=== PATIENT | female | born 1990 | race Two or more races ===

== ENCOUNTER 2018-02-18 20:44 | Inpatient (IN) | payer BC, MEDICAID ==
[~2018-02-18] VITALS: Ht 157.5 cm; Wt 54.4 kg
--- NOTE | 2018-02-18 20:59 | Emergency Room Report ---
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 She was taking care of a patient that had nausea vomiting diarrhea. She's been unable to keep anything down for 1 day. She's also had watery stools that have change in smell. She's not passed any blood in not vomiting any blood. She also has myalgias and arthralgias. There is a slight amount of epigastric pain. She's not been able keep down any medication. She does not have a Zofran. Pain in body 7/10, abdomen 4/10. Some improvement with moving her bowels. She denies any dysuria. LNMP normal. She feels dizzy when she stands up. Slight headache. She denies any medical problems Proband child with WBCs in stool. Ill for 3 days. Apparently child's stools sent for analysis. 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 Last Menstrual Period: 2 days ago Reviewed Nursing Documentation: PMH: Agreed; PSxH: Agreed (Kye Redd MD) Nursing Documentation-PMH Past Medical History: No Stated History (Kye Redd MD) Review of Systems All Other Systems: negative except mentioned in HPI (Kye Redd MD) Physical Exam Vital Signs Date Time Temp Pulse Resp B/P (MAP) Pulse Ox O2 Delivery O2 Flow Rate FiO2 02/18/18 20:45 102.2 92 18 116/73 99 Room Air Sp02 EP Interpretation: reviewed, normal General Appearance: well appearing, no apparent distress, GCS 15 Head: normocephalic Eyes: bilateral eye normal inspection, bilateral eye PERRL ENT: moist mucus membranes Neck: supple Respiratory: lungs clear, normal breath sounds Cardiovascular #1: tachycardia Cardiovascular #2: 2+ radial (R) Gastrointestinal: normal inspection, normal bowel sounds, non tender, soft, non -distended, no guarding, no rebound Genitourinary: no CVA tenderness Musculoskeletal: back normal, normal range of motion Neurologic: alert, oriented x3, grossly normal Psychiatric: mood/affect normal Skin: normal inspection, warm/dry (Kye Redd MD) Medical Decision Making Diagnostic Impression: Primary Impression: Colitis ER Course Patient presents with nausea vomiting diarrhea and fever. She is tachycardic and symptomatic. She'll be treated with IV hydration, Zofran and Toradol and a small dose of morphine. In addition to that we will be sending labs and urinalysis. As child with WBC in stool, concern for possible infectious ( invasive) gastroenteritis. Will send stool for evaluation if produced. Consideration for treatment with antibiotics if elevated WBC. Some improved with 1st bolus and meds. Tolerating oral. Hypotensive. Temp better. Offered admission. She prefers outpatient observation. 3rd liter. Signed out to Dr. Nguyen. Laboratory Tests Test 02/18/18 20:45 02/18/18 21:00 Urine Color Yellow Urine Appearance Clear Urine pH 5 (4.5-8.0) Urine Specific [place] 1.020 (1.005-1.035) Urine Protein 2+ (NEGATIVE) H Urine Glucose (UA) Negative (NEGATIVE) Urine Ketones 4+ (NEGATIVE) H Urine Blood 2+ (NEGATIVE) H Urine Nitrite Negative (NEGATIVE) Urine Bilirubin Negative (NEGATIVE) Urine Urobilinogen Normal MG/DL (0.0-1.0) Urine Leukocyte Esterase 1+ (NEGATIVE) H Urine RBC 5-10 /HPF (0 - 2) H Urine WBC 2-4 /HPF (0 - 2) Urine Squamous Epithelial Cells Few /LPF (NONE/OCC) Urine Amorphous Sediment Few /LPF (NONE) H Urine Bacteria Few /HPF (NONE) Urine HCG, Qualitative Negative (NEGATIVE) White Blood Count 8.4 K/UL (4.8-10.8) Red Blood Count 5.43 M/UL (4.20-5.40) H Hemoglobin 15.7 G/DL (12.0-16.0) Hematocrit 46.9 % (37.0-47.0) Mean Corpuscular Volume 86 FL (80-99) Mean Corpuscular Hemoglobin 28.9 PG (27.0-31.0) Mean Corpuscular Hemoglobin Concent 33.5 G/DL (32.0-36.0) Red Cell Distribution Width 11.3 % (11.6-14.8) L Platelet Count 164 K/UL (150-450) Mean Platelet Volume 8.4 FL (6.5-10.1) Neutrophils (%) (Auto) % (45.0-75.0) Lymphocytes (%) (Auto) % (20.0-45.0) Monocytes (%) (Auto) % (1.0-10.0) Eosinophils (%) (Auto) % (0.0-3.0) Basophils (%) (Auto) % (0.0-2.0) Differential Total Cells Counted 100 Neutrophils % (Manual) 88 % (45-75) H Lymphocytes % (Manual) 5 % (20-45) L Monocytes % (Manual) 4 % (1-10) Eosinophils % (Manual) 0 % (0-3) Basophils % (Manual) 0 % (0-2) Band Neutrophils 3 % (0-8) Platelet Estimate Adequate Platelet Morphology Normal Red Blood Cell Morphology Normal Sodium Level 139 MMOL/L (136-145) Potassium Level 3.6 MMOL/L (3.5-5.1) Chloride Level 104 MMOL/L (98-107) Carbon Dioxide Level 22 MMOL/L (21-32) Anion Gap 13 mmol/L (5-15) Blood Urea Nitrogen 15 mg/dL (7-18) Creatinine 0.8 MG/DL (0.55-1.30) Estimate Glomerular Filtration Rate > 60 mL/min (>60) Glucose Level 110 MG/DL (74-106) H Calcium Level 9.0 MG/DL (8.5-10.1) Total Bilirubin 1.1 MG/DL (0.2-1.0) H Direct Bilirubin 0.2 MG/DL (0.0-0.3) Aspartate Amino Transferase (AST) 17 U/L (15-37) Alanine Aminotransferase (ALT) 30 U/L (12-78) Alkaline Phosphatase 49 U/L (46-116) Total Protein 8.1 G/DL (6.4-8.2) Albumin 4.0 G/DL (3.4-5.0) Globulin 4.1 g/dL Albumin/Globulin Ratio 1.0 (1.0-2.7) Lipase 118 U/L (73-393) (Kye Redd MD) ER Course Hospital Course 27 year-old female presents ED with abdominal pain, vomiting and diarrhea Clinical course Patient initially seen by Dr. Redd; please see her note for full history and physical Patient was pending reassessment after fourth liter of fluid. Patient remained hypotensive and tachycardic Patient received fourth liter of fluid. Repeat vitals show systolic blood pressure in the 90s with tachycardia. Patient feels weak and dizzy Discussed findings with patient. Patient continues to have pain. Will require admission for continued IV hydration and antibiotics Given Charmaine Gonzalez here. Lactate and cultures drawn Case discussed with Dr. Forte and he agreed to accept the patient to his service for further care and support I feel this is a highly complex case requiring extensive working including EKG/ Rhythm strip, Xray/CT/US, Blood/urine lab work, repeat exams while in ED, and administration of strong opiates/narcotics for pain control, admission to hospital or close patient follow up. Diagnosis - colitis Patient admitted to telemetry in serious condition Labs Test 02/18/18 20:45 02/18/18 21:00 Urine Color Yellow Urine Appearance Clear Urine pH 5 (4.5-8.0) Urine Specific [place] 1.020 (1.005-1.035) Urine Protein 2+ (NEGATIVE) Urine Glucose (UA) Negative (NEGATIVE) Urine Ketones 4+ (NEGATIVE) Urine Blood 2+ (NEGATIVE) Urine Nitrite Negative (NEGATIVE) Urine Bilirubin Negative (NEGATIVE) Urine Urobilinogen Normal MG/DL (0.0-1.0) Urine Leukocyte Esterase 1+ (NEGATIVE) Urine RBC 5-10 /HPF (0 - 2) Urine WBC 2-4 /HPF (0 - 2) Urine Squamous Epithelial Cells Few /LPF (NONE/OCC) Urine Amorphous Sediment Few /LPF (NONE) Urine Bacteria Few /HPF (NONE) Urine HCG, Qualitative Negative (NEGATIVE) White Blood Count 8.4 K/UL (4.8-10.8) Red Blood Count 5.43 M/UL (4.20-5.40) Hemoglobin 15.7 G/DL (12.0-16.0) Hematocrit 46.9 % (37.0-47.0) Mean Corpuscular Volume 86 FL (80-99) Mean Corpuscular Hemoglobin 28.9 PG (27.0-31.0) Mean Corpuscular Hemoglobin Concent 33.5 G/DL (32.0-36.0) Red Cell Distribution Width 11.3 % (11.6-14.8) Platelet Count 164 K/UL (150-450) Mean Platelet Volume 8.4 FL (6.5-10.1) Neutrophils (%) (Auto) % (45.0-75.0) Lymphocytes (%) (Auto) % (20.0-45.0) Monocytes (%) (Auto) % (1.0-10.0) Eosinophils (%) (Auto) % (0.0-3.0) Basophils (%) (Auto) % (0.0-2.0) Differential Total Cells Counted 100 Neutrophils % (Manual) 88 % (45-75) Lymphocytes % (Manual) 5 % (20-45) Monocytes % (Manual) 4 % (1-10) Eosinophils % (Manual) 0 % (0-3) Basophils % (Manual) 0 % (0-2) Band Neutrophils 3 % (0-8) Platelet Estimate Adequate Platelet Morphology Normal Red Blood Cell Morphology Normal Sodium Level 139 MMOL/L (136-145) Potassium Level 3.6 MMOL/L (3.5-5.1) Chloride Level 104 MMOL/L (98-107) Carbon Dioxide Level 22 MMOL/L (21-32) Anion Gap 13 mmol/L (5-15) Blood Urea Nitrogen 15 mg/dL (7-18) Creatinine 0.8 MG/DL (0.55-1.30) Estimat Glomerular Filtration Rate > 60 mL/min (>60) Glucose Level 110 MG/DL (74-106) Calcium Level 9.0 MG/DL (8.5-10.1) Total Bilirubin 1.1 MG/DL (0.2-1.0) Direct Bilirubin 0.2 MG/DL (0.0-0.3) Aspartate Amino Transf (AST/SGOT) 17 U/L (15-37) Alanine Aminotransferase (ALT/SGPT) 30 U/L (12-78) Alkaline Phosphatase 49 U/L (46-116) Total Protein 8.1 G/DL (6.4-8.2) Albumin 4.0 G/DL (3.4-5.0) Globulin 4.1 g/dL Albumin/Globulin Ratio 1.0 (1.0-2.7) Lipase 118 U/L (73-393) (Eamon Nguyen MD) Status: improved (Kye Redd MD) Status: improved (Eamon Nguyen MD) Disposition: ADMITTED INPATIENT Condition: Serious Scripts Acetaminophen (Tylenol) 325 Mg Tablet 650 MG ORAL Q6H PRN for Prn Pain/Headache/Temp > 101, #20 TAB 0 Refills Prov: Kye Redd MD 02/18/18 Ondansetron Odt* (ZOFRAN ODT*) 4 Mg Tab.rapdis 4 MG BC EVERY 8 HOURS, #6 TAB 1 Refill Prov: Kye Redd MD 02/18/18 Kye Redd MD Feb 18, 2018 20:59 Eamon Nguyen MD Feb 19, 2018 04:01
[2018-02-18] MEDS ORDERED: Morphine Sulfate 2mg/ml Inj IVP ONE (21:00)
[2018-02-18] MEDS ORDERED: Ketorolac 30mg Inj IV ONE (21:00)
[2018-02-18 21:17] VITALS: BP 116/73
[2018-02-18 21:26] LABS: APPEARANCE,URINE CLEAR; BILIRUBIN, URINE NEGATIVE (NEGATIVE); GLUCOSE, URINE (UA) NEGATIVE (NEGATIVE); KETONES,URINE 4+ (NEGATIVE); LEUKOCYTE ESTERASE ,URINE 1+ (NEGATIVE); NITRITE,URINE NEGATIVE (NEGATIVE); PH,URINE 5 (4.5-8.0); PROTEIN,URINE 2+ (NEGATIVE); UROBILINOGEN,URINE NORMAL MG/DL (0.0-1.0)
[2018-02-18 21:28] LABS: COLOR,URINE YELLOW
[2018-02-18 21:32] LABS: HEMATOCRIT 46.9 % (37.0-47.0); HEMOGLOBIN 15.7 G/DL (12.0-16.0); MEAN CORPUSCULAR VOLUME 86 FL (80-99); PLATELET COUNT 164 K/UL (150-450); RED BLOOD COUNT 5.43 M/UL (4.20-5.40); RED CELL DISTRIBUTION WIDTH 11.3 % (11.6-14.8); WHITE BLOOD COUNT 8.4 K/UL (4.8-10.8)
[2018-02-18 21:39] LABS: ANION GAP 13 mmol/L (5-15); BLOOD UREA NITROGEN 15 mg/dL (7-18); CARBON DIOXIDE 22 MMOL/L (21-32); CHLORIDE 104 MMOL/L (98-107); CREATININE 0.8 MG/DL (0.55-1.30); POTASSIUM 3.6 MMOL/L (3.5-5.1); SODIUM 139 MMOL/L (136-145)
[2018-02-18 21:48] LABS: ALANINE AMINOTRANSFERASE 30 U/L (12-78); ALKALINE PHOSPHATASE 49 U/L (46-116); ASPARTATE AMINO TRANSFERASE 17 U/L (15-37); BILIRUBIN,TOTAL 1.1 MG/DL (0.2-1.0)
[2018-02-18 21:50] LABS: BILIRUBIN,DIRECT 0.2 MG/DL (0.0-0.3)
[2018-02-18 23:08] VITALS: BP 87/43
[2018-02-18] MEDS ORDERED: ONDANSETRON ODT4 MG BC (23:28)
[2018-02-18] MEDS ORDERED: TYLENOL325 MG ORAL (23:28)
[2018-02-19] VITALS (8 sets, daily range): BP systolic 94–112; BP diastolic 51–69
[2018-02-19] MEDS ORDERED: Morphine Sulfate 4mg/ml Inj (IV/IM USE ONLY) IVP ONE ×2 (04:00)
[2018-02-19] MEDS ORDERED: Sodium Chloride 500ML 500 ML IVLG SCH (04:40)
[2018-02-19] MEDS ORDERED: Morphine Sulfate 4mg/ml Inj (IV/IM USE ONLY) IVP PRN ×2 (04:45→06:00)
[2018-02-19] MEDS ORDERED: Sodium Chloride 500ML 550 ML IV PRN (06:45)
[2018-02-19] MEDS ORDERED: D5NS 1,000 ML IV SCH (07:00)
[2018-02-19] MEDS: Enoxaparin 40mg Inj SUBQ SCH (09:00)
--- NOTE | 2018-02-19 10:47 | Pulmonology Progress Note ---
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 She's been unable to keep anything down for 1 day. She's also had watery stools that have change in smell. She's not passed any blood in not vomiting any blood. She also has myalgias and arthralgias. There is a slight amount of epigastric pain. She's not been able keep down any medication. She does not have a Zofran. Pain in body 7/10, abdomen 4/10. Some improvement with moving her bowels. She denies any dysuria. LNMP normal. She feels dizzy when she stands up. Slight headache. 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 Past Medical History: No Stated History Review of Systems All Other Systems: negative except mentioned in HPI Physical Exam Vital Signs Noted General Appearance: well appearing, no apparent distress, GCS 15 Head: normocephalic Eyes: bilateral eye normal inspection, bilateral eye PERRL ENT: moist mucus membranes Neck: supple Respiratory: lungs clear, normal breath sounds Cardiovascular #1: tachycardia Cardiovascular #2: 2+ radial (R) Gastrointestinal: normal inspection, normal bowel sounds, non tender, soft, non -distended, no guarding, no rebound Genitourinary: no CVA tenderness Musculoskeletal: back normal, normal range of motion Neurologic: alert, oriented x3, grossly normal Psychiatric: mood/affect normal Skin: normal inspection, warm/dry Impression Possible Infectious Diarrhea with fever. She is tachycardic and symptomatic. Plan: IV hydration, bolus PRN, Zofran and [place]. Labs and urinalysis. Tolerating oral fluids Antibiotics: Cipro and Flagyl IV PPX O2 PRN Laboratory Tests Test 02/18/18 20:45 02/18/18 21:00 Urine Color Yellow Urine Appearance Clear Urine pH 5 (4.5-8.0) Urine Specific [place] 1.020 (1.005-1.035) Urine Protein 2+ (NEGATIVE) H Urine Glucose (UA) Negative (NEGATIVE) Urine Ketones 4+ (NEGATIVE) H Urine Blood 2+ (NEGATIVE) H Urine Nitrite Negative (NEGATIVE) Urine Bilirubin Negative (NEGATIVE) Urine Urobilinogen Normal MG/DL (0.0-1.0) Urine Leukocyte Esterase 1+ (NEGATIVE) H Urine RBC 5-10 /HPF (0 - 2) H Urine WBC 2-4 /HPF (0 - 2) Urine Squamous Epithelial Cells Few /LPF (NONE/OCC) Urine Amorphous Sediment Few /LPF (NONE) H Urine Bacteria Few /HPF (NONE) Urine HCG, Qualitative Negative (NEGATIVE) White Blood Count 8.4 K/UL (4.8-10.8) Red Blood Count 5.43 M/UL (4.20-5.40) H Hemoglobin 15.7 G/DL (12.0-16.0) Hematocrit 46.9 % (37.0-47.0) Mean Corpuscular Volume 86 FL (80-99) Mean Corpuscular Hemoglobin 28.9 PG (27.0-31.0) Mean Corpuscular Hemoglobin Concent 33.5 G/DL (32.0-36.0) Red Cell Distribution Width 11.3 % (11.6-14.8) L Platelet Count 164 K/UL (150-450) Mean Platelet Volume 8.4 FL (6.5-10.1) Neutrophils (%) (Auto) % (45.0-75.0) Lymphocytes (%) (Auto) % (20.0-45.0) Monocytes (%) (Auto) % (1.0-10.0) Eosinophils (%) (Auto) % (0.0-3.0) Basophils (%) (Auto) % (0.0-2.0) Differential Total Cells Counted 100 Neutrophils % (Manual) 88 % (45-75) H Lymphocytes % (Manual) 5 % (20-45) L Monocytes % (Manual) 4 % (1-10) Eosinophils % (Manual) 0 % (0-3) Basophils % (Manual) 0 % (0-2) Band Neutrophils 3 % (0-8) Platelet Estimate Adequate Platelet Morphology Normal Red Blood Cell Morphology Normal Sodium Level 139 MMOL/L (136-145) Potassium Level 3.6 MMOL/L (3.5-5.1) Chloride Level 104 MMOL/L (98-107) Carbon Dioxide Level 22 MMOL/L (21-32) Anion Gap 13 mmol/L (5-15) Blood Urea Nitrogen 15 mg/dL (7-18) Creatinine 0.8 MG/DL (0.55-1.30) Estimate Glomerular Filtration Rate > 60 mL/min (>60) Glucose Level 110 MG/DL (74-106) H Calcium Level 9.0 MG/DL (8.5-10.1) Total Bilirubin 1.1 MG/DL (0.2-1.0) H Direct Bilirubin 0.2 MG/DL (0.0-0.3) Aspartate Amino Transferase (AST) 17 U/L (15-37) Alanine Aminotransferase (ALT) 30 U/L (12-78) Alkaline Phosphatase 49 U/L (46-116) Total Protein 8.1 G/DL (6.4-8.2) Albumin 4.0 G/DL (3.4-5.0) Globulin 4.1 g/dL Albumin/Globulin Ratio 1.0 (1.0-2.7) Lipase 118 U/L (73-393) Labs Test 02/18/18 20:45 02/18/18 21:00 Urine Color Yellow Urine Appearance Clear Urine pH 5 (4.5-8.0) Urine Specific [place] 1.020 (1.005-1.035) Urine Protein 2+ (NEGATIVE) Urine Glucose (UA) Negative (NEGATIVE) Urine Ketones 4+ (NEGATIVE) Urine Blood 2+ (NEGATIVE) Urine Nitrite Negative (NEGATIVE) Urine Bilirubin Negative (NEGATIVE) Urine Urobilinogen Normal MG/DL (0.0-1.0) Urine Leukocyte Esterase 1+ (NEGATIVE) Urine RBC 5-10 /HPF (0 - 2) Urine WBC 2-4 /HPF (0 - 2) Urine Squamous Epithelial Cells Few /LPF (NONE/OCC) Urine Amorphous Sediment Few /LPF (NONE) Urine Bacteria Few /HPF (NONE) Urine HCG, Qualitative Negative (NEGATIVE) White Blood Count 8.4 K/UL (4.8-10.8) Red Blood Count 5.43 M/UL (4.20-5.40) Hemoglobin 15.7 G/DL (12.0-16.0) Hematocrit 46.9 % (37.0-47.0) Mean Corpuscular Volume 86 FL (80-99) Mean Corpuscular Hemoglobin 28.9 PG (27.0-31.0) Mean Corpuscular Hemoglobin Concent 33.5 G/DL (32.0-36.0) Red Cell Distribution Width 11.3 % (11.6-14.8) Platelet Count 164 K/UL (150-450) Mean Platelet Volume 8.4 FL (6.5-10.1) Neutrophils (%) (Auto) % (45.0-75.0) Lymphocytes (%) (Auto) % (20.0-45.0) Monocytes (%) (Auto) % (1.0-10.0) Eosinophils (%) (Auto) % (0.0-3.0) Basophils (%) (Auto) % (0.0-2.0) Differential Total Cells Counted 100 Neutrophils % (Manual) 88 % (45-75) Lymphocytes % (Manual) 5 % (20-45) Monocytes % (Manual) 4 % (1-10) Eosinophils % (Manual) 0 % (0-3) Basophils % (Manual) 0 % (0-2) Band Neutrophils 3 % (0-8) Platelet Estimate Adequate Platelet Morphology Normal Red Blood Cell Morphology Normal Sodium Level 139 MMOL/L (136-145) Potassium Level 3.6 MMOL/L (3.5-5.1) Chloride Level 104 MMOL/L (98-107) Carbon Dioxide Level 22 MMOL/L (21-32) Anion Gap 13 mmol/L (5-15) Blood Urea Nitrogen 15 mg/dL (7-18) Creatinine 0.8 MG/DL (0.55-1.30) Estimat Glomerular Filtration Rate > 60 mL/min (>60) Glucose Level 110 MG/DL (74-106) Calcium Level 9.0 MG/DL (8.5-10.1) Total Bilirubin 1.1 MG/DL (0.2-1.0) Direct Bilirubin 0.2 MG/DL (0.0-0.3) Aspartate Amino Transf (AST/SGOT) 17 U/L (15-37) Alanine Aminotransferase (ALT/SGPT) 30 U/L (12-78) Alkaline Phosphatase 49 U/L (46-116) Total Protein 8.1 G/DL (6.4-8.2) Albumin 4.0 G/DL (3.4-5.0) Globulin 4.1 g/dL Albumin/Globulin Ratio 1.0 (1.0-2.7) Lipase 118 U/L (73-393) Subjective ROS Limited/Unobtainable: No Gastrointestinal/Abdominal: Reports: diarrhea Allergies: Uncoded Allergies: MINOCYLES MX (Allergy, Unknown, 02/18/18) Objective Last 24 Hour Vital Signs Date Time Temp Pulse Resp B/P (MAP) Pulse Ox O2 Delivery O2 Flow Rate FiO2 02/19/18 07:02 100.3 02/19/18 05:30 100.9 96 24 105/62 (76) 100 02/19/18 05:25 Room Air 02/19/18 05:08 97 02/19/18 04:55 99.6 105 18 98/51 99 Room Air 02/19/18 04:34 99.6 02/19/18 04:30 99.6 105 18 98/51 99 Room Air 02/19/18 02:52 100.2 116 18 96/52 99 Room Air 02/19/18 01:35 99.1 118 18 97/51 99 Room Air 02/19/18 00:07 99.9 02/18/18 23:08 99.9 108 18 87/43 02/18/18 21:33 102.2 02/18/18 21:33 102.2 02/18/18 21:17 102.2 76 18 116/73 99 Room Air 02/18/18 20:45 102.2 92 18 116/73 99 Room Air Intake and Output 02/18/18 02/19/18 18:59 06:59 Intake Total 5120 ml Balance 5120 ml Intake Oral 120 ml IV Total 5000 ml # Voids 2 # Bowel Movements 1 Laboratory Tests 02/18/18 20:45: Urine Color Yellow, Urine Appearance Clear, Urine pH 5, Urine Specific [place] 1.020, Urine Protein 2+H, Urine Glucose (UA) Negative, Urine Ketones 4+H, Urine Blood 2+H, Urine Nitrite Negative, Urine Bilirubin Negative, Urine Urobilinogen Normal, Urine Leukocyte Esterase 1+H, Urine RBC 5-10H, Urine WBC 2-4, Urine Squamous Epithelial Cells Few, Urine Amorphous Sediment FewH, Urine Bacteria Few , Urine HCG, Qualitative Negative 02/18/18 21:00: White Blood Count 8.4, Red Blood Count 5.43H, Hemoglobin 15.7, Hematocrit 46.9, Mean Corpuscular Volume 86, Mean Corpuscular Hemoglobin 28.9, Mean Corpuscular Hemoglobin Concent 33.5, Red Cell Distribution Width 11.3L, Platelet Count 164, Mean Platelet Volume 8.4, Neutrophils (%) (Auto) , Lymphocytes (%) (Auto) , Monocytes (%) (Auto) , Eosinophils (%) (Auto) , Basophils (%) (Auto) , Differential Total Cells Counted 100, Neutrophils % (Manual) 88H, Lymphocytes % (Manual) 5L, Monocytes % (Manual) 4, Eosinophils % (Manual) 0, Basophils % ( Manual) 0, Band Neutrophils 3, Platelet Estimate Adequate, Platelet Morphology Normal, Red Blood Cell Morphology Normal, Sodium Level 139, Potassium Level 3.6 , Chloride Level 104, Carbon Dioxide Level 22, Anion Gap 13, Blood Urea Nitrogen 15, Creatinine 0.8, Estimat Glomerular Filtration Rate > 60, Glucose Level 110H, Calcium Level 9.0, Total Bilirubin 1.1H, Direct Bilirubin 0.2, Aspartate Amino Transf (AST/SGOT) 17, Alanine Aminotransferase (ALT/SGPT) 30, Alkaline Phosphatase 49, Total Protein 8.1, Albumin 4.0, Globulin 4.1, Albumin/ Globulin Ratio 1.0, Lipase 118 02/19/18 03:00: Lactic Acid Level 0.90 Current Medications Medications (Trade) Dose Ordered Sig/Анна Route PRN Reason Start Time Stop Time Status Last Admin Dose Admin Acetaminophen (Tylenol) 650 mg Q4H PRN ORAL Mild Pain/Temp > 100.5 02/19/18 06:00 03/21/18 05:59 02/19/18 06:32 Ciprofloxacin 200 ml @ 200 mls/hr Q12HR@0300,1500 IV 02/19/18 15:00 02/26/18 14:59 Dextrose/Sodium Chloride 1,000 ml @ 100 mls/hr Q10H IV 02/19/18 07:00 03/21/18 06:59 02/19/18 07:04 Enoxaparin Sodium (Lovenox) 40 mg DAILY SUBQ 02/19/18 09:00 03/21/18 08:59 Morphine Sulfate (Morphine Sulfate) 3 mg Q6H PRN IVP Severe Pain (Pain Scale 7-10) 02/19/18 06:00 02/26/18 05:59 02/19/18 09:03 Ondansetron HCl (Zofran) 4 mg Q6H PRN IVP Nausea & Vomiting 02/19/18 06:00 03/21/18 05:59 Sodium Chloride 550 ml @ 999 mls/hr Q6H PRN IV SBP <105 02/19/18 06:45 03/21/18 06:44 Kye Jones MD Feb 19, 2018 10:47
--- NOTE | 2018-02-19 14:23 | Infectious Diseases Prog Note ---
Assessment/Plan Problems: (1) Gastroenteritis Assessment & Plan: bacterial VS viral , with high fever suggestive of bacterial , will continue ciprofloxacin empirically and add flagyl , send Giardia antigen and add stool OVA/Parasites , will place patient in contact isolation for now pending stool culture and C diff (2) Diarrhea Assessment & Plan: suspect infectious in eiteology with high fever due to recent contact with child who had diarrhea illness , continue hydration and antibiotics empirically, avoid anti diarrhea meds (3) Fever Assessment & Plan: due to the above , continue antibiotics and tylenol , pending cultures and stool study (4) Dehydration Assessment & Plan: due to the above, continue ivf for hydration and encourage oral intake Subjective Allergies: Uncoded Allergies: MINOCYLES MX (Allergy, Unknown, 02/18/18) Objective Vital Signs Last 24 Hour Vital Signs Date Time Temp Pulse Resp B/P (MAP) Pulse Ox O2 Delivery O2 Flow Rate FiO2 02/19/18 12:22 99.1 02/19/18 12:00 84 02/19/18 12:00 100.9 96 18 112/69 (83) 97 02/19/18 08:00 100.3 92 18 98/59 (72) 98 02/19/18 05:30 100.9 96 24 105/62 (76) 100 02/19/18 05:25 Room Air 02/19/18 05:08 97 02/19/18 04:55 99.6 105 18 98/51 99 Room Air 02/19/18 04:34 99.6 02/19/18 04:30 99.6 105 18 98/51 99 Room Air 02/19/18 02:52 100.2 116 18 96/52 99 Room Air 02/19/18 01:35 99.1 118 18 97/51 99 Room Air 02/19/18 00:07 99.9 02/18/18 23:08 99.9 108 18 87/43 02/18/18 21:33 102.2 02/18/18 21:33 102.2 02/18/18 21:17 102.2 76 18 116/73 99 Room Air 02/18/18 20:45 102.2 92 18 116/73 99 Room Air Height (Feet): 5 Height (Inches): 2.00 Weight (Pounds): 120 Laboratory Tests Test 02/18/18 20:45 02/18/18 21:00 12/16/18 03:00 Urine Color Yellow Urine Appearance Clear Urine pH 5 (4.5-8.0) Urine Specific [place] 1.020 (1.005-1.035) Urine Protein 2+ (NEGATIVE) H Urine Glucose (UA) Negative (NEGATIVE) Urine Ketones 4+ (NEGATIVE) H Urine Blood 2+ (NEGATIVE) H Urine Nitrite Negative (NEGATIVE) Urine Bilirubin Negative (NEGATIVE) Urine Urobilinogen Normal MG/DL (0.0-1.0) Urine Leukocyte Esterase 1+ (NEGATIVE) H Urine RBC 5-10 /HPF (0 - 2) H Urine WBC 2-4 /HPF (0 - 2) Urine Squamous Epithelial Cells Few /LPF (NONE/OCC) Urine Amorphous Sediment Few /LPF (NONE) H Urine Bacteria Few /HPF (NONE) Urine HCG, Qualitative Negative (NEGATIVE) White Blood Count 8.4 K/UL (4.8-10.8) Red Blood Count 5.43 M/UL (4.20-5.40) H Hemoglobin 15.7 G/DL (12.0-16.0) Hematocrit 46.9 % (37.0-47.0) Mean Corpuscular Volume 86 FL (80-99) Mean Corpuscular Hemoglobin 28.9 PG (27.0-31.0) Mean Corpuscular Hemoglobin Concent 33.5 G/DL (32.0-36.0) Red Cell Distribution Width 11.3 % (11.6-14.8) L Platelet Count 164 K/UL (150-450) Mean Platelet Volume 8.4 FL (6.5-10.1) Neutrophils (%) (Auto) % (45.0-75.0) Lymphocytes (%) (Auto) % (20.0-45.0) Monocytes (%) (Auto) % (1.0-10.0) Eosinophils (%) (Auto) % (0.0-3.0) Basophils (%) (Auto) % (0.0-2.0) Differential Total Cells Counted 100 Neutrophils % (Manual) 88 % (45-75) H Lymphocytes % (Manual) 5 % (20-45) L Monocytes % (Manual) 4 % (1-10) Eosinophils % (Manual) 0 % (0-3) Basophils % (Manual) 0 % (0-2) Band Neutrophils 3 % (0-8) Platelet Estimate Adequate Platelet Morphology Normal Red Blood Cell Morphology Normal Sodium Level 139 MMOL/L (136-145) Potassium Level 3.6 MMOL/L (3.5-5.1) Chloride Level 104 MMOL/L (98-107) Carbon Dioxide Level 22 MMOL/L (21-32) Anion Gap 13 mmol/L (5-15) Blood Urea Nitrogen 15 mg/dL (7-18) Creatinine 0.8 MG/DL (0.55-1.30) Estimat Glomerular Filtration Rate > 60 mL/min (>60) Glucose Level 110 MG/DL (74-106) H Calcium Level 9.0 MG/DL (8.5-10.1) Total Bilirubin 1.1 MG/DL (0.2-1.0) H Direct Bilirubin 0.2 MG/DL (0.0-0.3) Aspartate Amino Transf (AST/SGOT) 17 U/L (15-37) Alanine Aminotransferase (ALT/SGPT) 30 U/L (12-78) Alkaline Phosphatase 49 U/L (46-116) Total Protein 8.1 G/DL (6.4-8.2) Albumin 4.0 G/DL (3.4-5.0) Globulin 4.1 g/dL Albumin/Globulin Ratio 1.0 (1.0-2.7) Lipase 118 U/L (73-393) Lactic Acid Level 0.90 mmol/L (0.4-2.0) Current Medications Medications (Trade) Dose Ordered Sig/Анна Route PRN Reason Start Time Stop Time Status Last Admin Dose Admin Acetaminophen (Tylenol) 650 mg Q4H PRN ORAL Mild Pain/Temp > 100.5 02/19/18 06:00 03/21/18 05:59 02/19/18 11:52 Ciprofloxacin 200 ml @ 200 mls/hr Q12HR@0300,1500 IV 02/19/18 15:00 02/26/18 14:59 Dextrose/Sodium Chloride 1,000 ml @ 100 mls/hr Q10H IV 02/19/18 07:00 03/21/18 06:59 02/19/18 07:04 Enoxaparin Sodium (Lovenox) 40 mg DAILY SUBQ 02/19/18 09:00 03/21/18 08:59 Metronidazole 100 ml @ 100 mls/hr Q8HR IVPB 02/19/18 14:30 02/26/18 14:29 UNV Morphine Sulfate (Morphine Sulfate) 3 mg Q4H PRN IVP Severe Pain (Pain Scale 7-10) 02/19/18 14:15 02/26/18 05:59 Ondansetron HCl (Zofran) 4 mg Q6H PRN IVP Nausea & Vomiting 02/19/18 06:00 03/21/18 05:59 Sodium Chloride 550 ml @ 999 mls/hr Q6H PRN IV SBP <105 02/19/18 06:45 03/21/18 06:44 Claudia Garnica M.D. Feb 19, 2018 14:23
--- NOTE | 2018-02-19 14:27 | History & Physical ---
History and Physical History & Physicial Seen and examined. Full Dictation in progress Kinza Forte MD Feb 19, 2018 14:27
--- NOTE | 2018-02-19 14:28 | General Progress Note ---
Assessment/Plan Assessment/Plan S: I still have diarrhea O: appears fatigued. not able to tolerate PO PHYSICAL EXAMINATION: HEAD AND NECK: Atraumatic and normocephalic. CHEST: Clear to auscultation. No wheezing. No crackles. ABDOMEN: Soft. No organomegaly. Bowel sounds are normal. MUSCULOSKELETAL: No gross focal lateralized motor deficit. NEUROLOGIC: Awake, alert, and oriented x3. LABORATORY DATA: Dated 02/19 reviewed Meds: reviwed and reconciled ASSESSMENT: 1. Gastroenteritis - differential diagnosis, bacterial versus viral. 2. Abnormal blood sugar. 3. Abnormal liver function tests. 1- Acute Gastritis 2- Abn BS 3- Abn LFT Plan: ID, GI are consulted, continue NPO Subjective Allergies: Uncoded Allergies: MINOCYLES MX (Allergy, Unknown, 02/18/18) Objective Last 24 Hour Vital Signs Date Time Temp Pulse Resp B/P (MAP) Pulse Ox O2 Delivery O2 Flow Rate FiO2 02/19/18 12:22 99.1 02/19/18 12:00 84 02/19/18 12:00 100.9 96 18 112/69 (83) 97 02/19/18 08:00 100.3 92 18 98/59 (72) 98 02/19/18 05:30 100.9 96 24 105/62 (76) 100 02/19/18 05:25 Room Air 02/19/18 05:08 97 02/19/18 04:55 99.6 105 18 98/51 99 Room Air 02/19/18 04:34 99.6 02/19/18 04:30 99.6 105 18 98/51 99 Room Air 02/19/18 02:52 100.2 116 18 96/52 99 Room Air 02/19/18 01:35 99.1 118 18 97/51 99 Room Air 02/19/18 00:07 99.9 02/18/18 23:08 99.9 108 18 87/43 02/18/18 21:33 102.2 02/18/18 21:33 102.2 02/18/18 21:17 102.2 76 18 116/73 99 Room Air 02/18/18 20:45 102.2 92 18 116/73 99 Room Air Intake and Output 02/18/18 02/19/18 18:59 06:59 Intake Total 5120 ml Balance 5120 ml Intake Oral 120 ml IV Total 5000 ml # Voids 2 # Bowel Movements 1 Laboratory Tests 02/18/18 20:45: Urine Color Yellow, Urine Appearance Clear, Urine pH 5, Urine Specific [place] 1.020, Urine Protein 2+H, Urine Glucose (UA) Negative, Urine Ketones 4+H, Urine Blood 2+H, Urine Nitrite Negative, Urine Bilirubin Negative, Urine Urobilinogen Normal, Urine Leukocyte Esterase 1+H, Urine RBC 5-10H, Urine WBC 2-4, Urine Squamous Epithelial Cells Few, Urine Amorphous Sediment FewH, Urine Bacteria Few , Urine HCG, Qualitative Negative 02/18/18 21:00: White Blood Count 8.4, Red Blood Count 5.43H, Hemoglobin 15.7, Hematocrit 46.9, Mean Corpuscular Volume 86, Mean Corpuscular Hemoglobin 28.9, Mean Corpuscular Hemoglobin Concent 33.5, Red Cell Distribution Width 11.3L, Platelet Count 164, Mean Platelet Volume 8.4, Neutrophils (%) (Auto) , Lymphocytes (%) (Auto) , Monocytes (%) (Auto) , Eosinophils (%) (Auto) , Basophils (%) (Auto) , Differential Total Cells Counted 100, Neutrophils % (Manual) 88H, Lymphocytes % (Manual) 5L, Monocytes % (Manual) 4, Eosinophils % (Manual) 0, Basophils % ( Manual) 0, Band Neutrophils 3, Platelet Estimate Adequate, Platelet Morphology Normal, Red Blood Cell Morphology Normal, Sodium Level 139, Potassium Level 3.6 , Chloride Level 104, Carbon Dioxide Level 22, Anion Gap 13, Blood Urea Nitrogen 15, Creatinine 0.8, Estimat Glomerular Filtration Rate > 60, Glucose Level 110H, Calcium Level 9.0, Total Bilirubin 1.1H, Direct Bilirubin 0.2, Aspartate Amino Transf (AST/SGOT) 17, Alanine Aminotransferase (ALT/SGPT) 30, Alkaline Phosphatase 49, Total Protein 8.1, Albumin 4.0, Globulin 4.1, Albumin/ Globulin Ratio 1.0, Lipase 118 02/19/18 03:00: Lactic Acid Level 0.90 Height (Feet): 5 Height (Inches): 2.00 Weight (Pounds): 120 Kinza Forte MD Feb 19, 2018 14:28
[2018-02-19] MEDS: Morphine Sulfate 4mg/ml Inj (IV/IM USE ONLY) IVP PRN ×2 (14:36→20:14)
--- NOTE | 2018-02-19 14:44 | Cardiology Progress Note ---
Assessment/Plan Assessment/Plan The patient is seen and examined, full consult note will be dictated shortly. Objective Last 24 Hour Vital Signs Date Time Temp Pulse Resp B/P (MAP) Pulse Ox O2 Delivery O2 Flow Rate FiO2 02/19/18 12:22 99.1 02/19/18 12:00 84 02/19/18 12:00 100.9 96 18 112/69 (83) 97 02/19/18 08:00 100.3 92 18 98/59 (72) 98 02/19/18 05:30 100.9 96 24 105/62 (76) 100 02/19/18 05:25 Room Air 02/19/18 05:08 97 02/19/18 04:55 99.6 105 18 98/51 99 Room Air 02/19/18 04:34 99.6 02/19/18 04:30 99.6 105 18 98/51 99 Room Air 02/19/18 02:52 100.2 116 18 96/52 99 Room Air 02/19/18 01:35 99.1 118 18 97/51 99 Room Air 02/19/18 00:07 99.9 02/18/18 23:08 99.9 108 18 87/43 02/18/18 21:33 102.2 02/18/18 21:33 102.2 02/18/18 21:17 102.2 76 18 116/73 99 Room Air 02/18/18 20:45 102.2 92 18 116/73 99 Room Air Intake and Output 02/18/18 02/19/18 18:59 06:59 Intake Total 5120 ml Balance 5120 ml Intake Oral 120 ml IV Total 5000 ml # Voids 2 # Bowel Movements 1 Laboratory Tests Test 02/18/18 20:45 02/18/18 21:00 02/19/18 03:00 Urine Color Yellow Urine Appearance Clear Urine pH 5 (4.5-8.0) Urine Specific [place] 1.020 (1.005-1.035) Urine Protein 2+ (NEGATIVE) H Urine Glucose (UA) Negative (NEGATIVE) Urine Ketones 4+ (NEGATIVE) H Urine Blood 2+ (NEGATIVE) H Urine Nitrite Negative (NEGATIVE) Urine Bilirubin Negative (NEGATIVE) Urine Urobilinogen Normal MG/DL (0.0-1.0) Urine Leukocyte Esterase 1+ (NEGATIVE) H Urine RBC 5-10 /HPF (0 - 2) H Urine WBC 2-4 /HPF (0 - 2) Urine Squamous Epithelial Cells Few /LPF (NONE/OCC) Urine Amorphous Sediment Few /LPF (NONE) H Urine Bacteria Few /HPF (NONE) Urine HCG, Qualitative Negative (NEGATIVE) White Blood Count 8.4 K/UL (4.8-10.8) Red Blood Count 5.43 M/UL (4.20-5.40) H Hemoglobin 15.7 G/DL (12.0-16.0) Hematocrit 46.9 % (37.0-47.0) Mean Corpuscular Volume 86 FL (80-99) Mean Corpuscular Hemoglobin 28.9 PG (27.0-31.0) Mean Corpuscular Hemoglobin Concent 33.5 G/DL (32.0-36.0) Red Cell Distribution Width 11.3 % (11.6-14.8) L Platelet Count 164 K/UL (150-450) Mean Platelet Volume 8.4 FL (6.5-10.1) Neutrophils (%) (Auto) % (45.0-75.0) Lymphocytes (%) (Auto) % (20.0-45.0) Monocytes (%) (Auto) % (1.0-10.0) Eosinophils (%) (Auto) % (0.0-3.0) Basophils (%) (Auto) % (0.0-2.0) Differential Total Cells Counted 100 Neutrophils % (Manual) 88 % (45-75) H Lymphocytes % (Manual) 5 % (20-45) L Monocytes % (Manual) 4 % (1-10) Eosinophils % (Manual) 0 % (0-3) Basophils % (Manual) 0 % (0-2) Band Neutrophils 3 % (0-8) Platelet Estimate Adequate Platelet Morphology Normal Red Blood Cell Morphology Normal Sodium Level 139 MMOL/L (136-145) Potassium Level 3.6 MMOL/L (3.5-5.1) Chloride Level 104 MMOL/L (98-107) Carbon Dioxide Level 22 MMOL/L (21-32) Anion Gap 13 mmol/L (5-15) Blood Urea Nitrogen 15 mg/dL (7-18) Creatinine 0.8 MG/DL (0.55-1.30) Estimat Glomerular Filtration Rate > 60 mL/min (>60) Glucose Level 110 MG/DL (74-106) H Calcium Level 9.0 MG/DL (8.5-10.1) Total Bilirubin 1.1 MG/DL (0.2-1.0) H Direct Bilirubin 0.2 MG/DL (0.0-0.3) Aspartate Amino Transf (AST/SGOT) 17 U/L (15-37) Alanine Aminotransferase (ALT/SGPT) 30 U/L (12-78) Alkaline Phosphatase 49 U/L (46-116) Total Protein 8.1 G/DL (6.4-8.2) Albumin 4.0 G/DL (3.4-5.0) Globulin 4.1 g/dL Albumin/Globulin Ratio 1.0 (1.0-2.7) Lipase 118 U/L (73-393) Lactic Acid Level 0.90 mmol/L (0.4-2.0) Charly Stack MD Feb 19, 2018 14:44
[2018-02-19] MEDS: D5NS 1,000 ML IV SCH ×2 (15:06→23:03)
[2018-02-19] MEDS ORDERED: Tubing IV Secondary IV ONE (15:42)
[2018-02-19] MEDS ORDERED: NS 275ml ONE (15:42)
--- NOTE | 2018-02-19 18:14 | Consultation ---
DATE OF CONSULTATION: 02/19/2018 GASTROENTEROLOGY CONSULTATION CONSULTING PHYSICIAN: Ronald Shaikh M.D. REFERRING PHYSICIAN: Kinza Forte M.D. CHIEF COMPLAINT: I was asked to see this patient by Dr. Kinza Forte for evaluation of her gastrointestinal symptoms. 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 She states that she was taking care of her child who had several gastrointestinal symptoms and subsequently she herself. She had nausea and vomiting twice an hour for multiple hours [id number] including diarrhea, and she became so dehydrated that she came to the emergency room where she was found to be hypotensive. She has been given five liters of fluid and she feels much better today. Her nausea, vomiting, and diarrhea have actually all resolved and she has no abdominal complaints. She did have some low-grade fevers overnight. She is requesting for clear liquid diet and she wants to eat. She has had no similar occurrences before and that she has no significant past medical history. CT scan has been ordered for her, but not been done yet. PAST MEDICAL HISTORY: Otherwise negative. FAMILY HISTORY: Noncontributory. SOCIAL HISTORY: The patient is single. She is a resident in a family medicine program in her first year and she was taking care of children at the time of admission. She does not smoke or drink alcohol. ALLERGIES: Minocycline. MEDICATIONS: See chart list for details. REVIEW OF SYSTEMS: Otherwise negative. PHYSICAL EXAMINATION: GENERAL: A pleasant young woman, seen in her room with the family at bedside. HEENT: Normocephalic and atraumatic. Sclerae anicteric. NECK: Supple. CHEST: Clear to auscultation. CARDIOVASCULAR: Revealed regular rate. ABDOMEN: Soft, flat. Good bowel sounds. There is no tenderness or masses. EXTREMITIES: Revealed no edema. LABORATORY DATA: Noted. ASSESSMENT: This patient presents with acute onset of nausea, vomiting, diarrhea, and dehydration after taking care of the child with similar symptoms in a residency program. Within 24 hours, she has become asymptomatic with no nausea, vomiting, or diarrhea today and her abdomen is benign. I therefore suspect that she has had a case of viral gastroenteritis, perhaps norovirus or rotavirus infection, and that her treatment should be supportive. Since she feels better today, her diet can be started clear liquids and advanced as tolerated. She should be hydrated until the time of discharge. Should her symptoms recur then further evaluation with imaging studies will be appropriate. Her stool cultures should be sent off and should they show any pathogens then antibiotic therapy may be necessary. Otherwise, she may resolve without any incidence or treatment. Her urine does show some hematuria, but she does not report any menstrual irregularities. She also has no urinary tract infection symptoms. and worked up if it persists. RECOMMENDATIONS: Per above discussion and per orders written in the chart. Thank you for asking me to participate in the care of this patient. Ronald Shaikh M.D. DR: CHANDLER JOB#: [id number] CC:
--- NOTE | 2018-02-19 20:30 | Consultation ---
DATE OF CONSULTATION: INFECTIOUS DISEASE CONSULTATION CONSULTING PHYSICIAN: Claudia Garnica M.D. REQUESTING PHYSICIAN: Kinza Forte M.D. REASON FOR CONSULTATION: Diarrhea with fever and gastroenteritis, rule out infectious etiology, recommendation for antibiotics treatment. 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 No other colleagues had the same symptoms. Denied any recent travel or sick contact. 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 The patient's diarrhea has been watery, no mucus or blood, yellowish in color. She vomited a couple of times bilious and food-like material, no blood and she developed fever up to 102. The patient was started on ciprofloxacin and given one dose of metronidazole in the emergency room, which helped to improve her fever and her nausea and vomiting almost improved, but continued to have episodes of diarrhea with watery stools and fever. So, Infectious Disease consultation was requested for antibiotics treatment and further management. REVIEW OF SYSTEMS: A 14-point of system reviewed were all negative apart from the one I mentioned above in my History and Physical. PAST MEDICAL HISTORY: Negative. PAST SURGICAL HISTORY: Negative. FAMILY HISTORY: Noncontributory. 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 Denied any recent drugs, tobacco, or alcohol. ALLERGIES: She is allergic to minocyles mx . MEDICATIONS: She is on ciprofloxacin IV. For the rest of her medications, please refer to MAR. PHYSICAL EXAMINATION: VITAL SIGNS: Temperature 100.9 degrees, pulse 96, respirations 18, blood pressure 112/69, and saturation 97% on room air. GENERAL: A young female lying in bed, awake, alert, oriented x3, not in acute distress. HEENT: Normocephalic and atraumatic. Pupils reactive to light equally. Moist oral mucosa. No exudate or thrush. NECK: Supple. No lymphadenopathy. CARDIOVASCULAR: Regular rate and rhythm. No murmur or gallop. LUNGS: Clear bilaterally. No wheezing or rhonchi. ABDOMEN: Soft, nontender, and nondistended. Normal bowel sounds. No hepatosplenomegaly or ascites. EXTREMITIES: No edema or cyanosis. LABORATORY DATA: Labs showed white count of 8.4, hemoglobin of 15.7, and platelet count of 164,000. BUN of 15, creatinine of 0.8, AST of 17, and ALT of 30. Urinalysis showed +2 blood, +4 ketones, +1 leukocyte esterase, 5 to 10 red blood cells, 2 to 4 wbc's in the urine, and few bacteria. ASSESSMENT AND RECOMMENDATION: 1. Gastroenteritis, bacterial versus viral, with high fever suggestive of bacterial etiology. We will continue ciprofloxacin empirically and add Flagyl to cover for Giardia and anaerobes. We will send Giardia antigen and add stool ova and parasite. Pending culture and C. difficile. We will place the patient in contact isolation for now. Pending stool culture and C. difficile toxin. 2. Diarrhea suspect infectious in etiology with high fever due to recent contact with the child who had diarrheal illness. Continue hydration and antibiotics empirically. Keep in contact isolation. Avoid antidiarrhea medicine for now. 3. Fever due to the above. Continue antibiotics and Tylenol. Pending culture and stool study. 4. Dehydration due to the above. Continue IV fluid for hydration and encourage oral intake. Thank you for the consult. ID will continue to follow. Please feel free to call with any question. Claudia Garnica M.D. DR: KULDIP JOB#: [id number] CC: JULIEN
--- NOTE | 2018-02-19 21:17 | Pulmonology Progress Note ---
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 She's been unable to keep anything down for 1 day. She's also had watery stools that have change in smell. She's not passed any blood in not vomiting any blood. She also has myalgias and arthralgias. There is a slight amount of epigastric pain. She's not been able keep down any medication. She does not have a Zofran. Pain in body 7/10, abdomen 4/10. Some improvement with moving her bowels. She denies any dysuria. LNMP normal. She feels dizzy when she stands up. Slight headache. 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 Last Menstrual Period: 2 days ago Past Medical History: No Stated History Review of Systems All Other Systems: negative except mentioned in HPI Physical Exam Vital Signs Noted General Appearance: well appearing, no apparent distress, GCS 15 Head: normocephalic Eyes: bilateral eye normal inspection, bilateral eye PERRL ENT: moist mucus membranes Neck: supple Respiratory: lungs clear, normal breath sounds Cardiovascular #1: tachycardia Cardiovascular #2: 2+ radial (R) Gastrointestinal: normal inspection, normal bowel sounds, non tender, soft, non -distended, no guarding, no rebound Genitourinary: no CVA tenderness Musculoskeletal: back normal, normal range of motion Neurologic: alert, oriented x3, grossly normal Psychiatric: mood/affect normal Skin: normal inspection, warm/dry Impression Possible Infectious Diarrhea with fever. She is tachycardic and symptomatic. Plan: IV hydration, bolus PRN, Zofran and [place]. Labs and urinalysis. Tolerating oral fluids Antibiotics: Cipro and Flagyl IV PPX O2 PRN Laboratory Tests Test 02/18/18 20:45 02/18/18 21:00 Urine Color Yellow Urine Appearance Clear Urine pH 5 (4.5-8.0) Urine Specific [place] 1.020 (1.005-1.035) Urine Protein 2+ (NEGATIVE) H Urine Glucose (UA) Negative (NEGATIVE) Urine Ketones 4+ (NEGATIVE) H Urine Blood 2+ (NEGATIVE) H Urine Nitrite Negative (NEGATIVE) Urine Bilirubin Negative (NEGATIVE) Urine Urobilinogen Normal MG/DL (0.0-1.0) Urine Leukocyte Esterase 1+ (NEGATIVE) H Urine RBC 5-10 /HPF (0 - 2) H Urine WBC 2-4 /HPF (0 - 2) Urine Squamous Epithelial Cells Few /LPF (NONE/OCC) Urine Amorphous Sediment Few /LPF (NONE) H Urine Bacteria Few /HPF (NONE) Urine HCG, Qualitative Negative (NEGATIVE) White Blood Count 8.4 K/UL (4.8-10.8) Red Blood Count 5.43 M/UL (4.20-5.40) H Hemoglobin 15.7 G/DL (12.0-16.0) Hematocrit 46.9 % (37.0-47.0) Mean Corpuscular Volume 86 FL (80-99) Mean Corpuscular Hemoglobin 28.9 PG (27.0-31.0) Mean Corpuscular Hemoglobin Concent 33.5 G/DL (32.0-36.0) Red Cell Distribution Width 11.3 % (11.6-14.8) L Platelet Count 164 K/UL (150-450) Mean Platelet Volume 8.4 FL (6.5-10.1) Neutrophils (%) (Auto) % (45.0-75.0) Lymphocytes (%) (Auto) % (20.0-45.0) Monocytes (%) (Auto) % (1.0-10.0) Eosinophils (%) (Auto) % (0.0-3.0) Basophils (%) (Auto) % (0.0-2.0) Differential Total Cells Counted 100 Neutrophils % (Manual) 88 % (45-75) H Lymphocytes % (Manual) 5 % (20-45) L Monocytes % (Manual) 4 % (1-10) Eosinophils % (Manual) 0 % (0-3) Basophils % (Manual) 0 % (0-2) Band Neutrophils 3 % (0-8) Platelet Estimate Adequate Platelet Morphology Normal Red Blood Cell Morphology Normal Sodium Level 139 MMOL/L (136-145) Potassium Level 3.6 MMOL/L (3.5-5.1) Chloride Level 104 MMOL/L (98-107) Carbon Dioxide Level 22 MMOL/L (21-32) Anion Gap 13 mmol/L (5-15) Blood Urea Nitrogen 15 mg/dL (7-18) Creatinine 0.8 MG/DL (0.55-1.30) Estimate Glomerular Filtration Rate > 60 mL/min (>60) Glucose Level 110 MG/DL (74-106) H Calcium Level 9.0 MG/DL (8.5-10.1) Total Bilirubin 1.1 MG/DL (0.2-1.0) H Direct Bilirubin 0.2 MG/DL (0.0-0.3) Aspartate Amino Transferase (AST) 17 U/L (15-37) Alanine Aminotransferase (ALT) 30 U/L (12-78) Alkaline Phosphatase 49 U/L (46-116) Total Protein 8.1 G/DL (6.4-8.2) Albumin 4.0 G/DL (3.4-5.0) Globulin 4.1 g/dL Albumin/Globulin Ratio 1.0 (1.0-2.7) Lipase 118 U/L (73-393) Labs Test 02/18/18 20:45 02/18/18 21:00 Urine Color Yellow Urine Appearance Clear Urine pH 5 (4.5-8.0) Urine Specific [place] 1.020 (1.005-1.035) Urine Protein 2+ (NEGATIVE) Urine Glucose (UA) Negative (NEGATIVE) Urine Ketones 4+ (NEGATIVE) Urine Blood 2+ (NEGATIVE) Urine Nitrite Negative (NEGATIVE) Urine Bilirubin Negative (NEGATIVE) Urine Urobilinogen Normal MG/DL (0.0-1.0) Urine Leukocyte Esterase 1+ (NEGATIVE) Urine RBC 5-10 /HPF (0 - 2) Urine WBC 2-4 /HPF (0 - 2) Urine Squamous Epithelial Cells Few /LPF (NONE/OCC) Urine Amorphous Sediment Few /LPF (NONE) Urine Bacteria Few /HPF (NONE) Urine HCG, Qualitative Negative (NEGATIVE) White Blood Count 8.4 K/UL (4.8-10.8) Red Blood Count 5.43 M/UL (4.20-5.40) Hemoglobin 15.7 G/DL (12.0-16.0) Hematocrit 46.9 % (37.0-47.0) Mean Corpuscular Volume 86 FL (80-99) Mean Corpuscular Hemoglobin 28.9 PG (27.0-31.0) Mean Corpuscular Hemoglobin Concent 33.5 G/DL (32.0-36.0) Red Cell Distribution Width 11.3 % (11.6-14.8) Platelet Count 164 K/UL (150-450) Mean Platelet Volume 8.4 FL (6.5-10.1) Neutrophils (%) (Auto) % (45.0-75.0) Lymphocytes (%) (Auto) % (20.0-45.0) Monocytes (%) (Auto) % (1.0-10.0) Eosinophils (%) (Auto) % (0.0-3.0) Basophils (%) (Auto) % (0.0-2.0) Differential Total Cells Counted 100 Neutrophils % (Manual) 88 % (45-75) Lymphocytes % (Manual) 5 % (20-45) Monocytes % (Manual) 4 % (1-10) Eosinophils % (Manual) 0 % (0-3) Basophils % (Manual) 0 % (0-2) Band Neutrophils 3 % (0-8) Platelet Estimate Adequate Platelet Morphology Normal Red Blood Cell Morphology Normal Sodium Level 139 MMOL/L (136-145) Potassium Level 3.6 MMOL/L (3.5-5.1) Chloride Level 104 MMOL/L (98-107) Carbon Dioxide Level 22 MMOL/L (21-32) Anion Gap 13 mmol/L (5-15) Blood Urea Nitrogen 15 mg/dL (7-18) Creatinine 0.8 MG/DL (0.55-1.30) Estimat Glomerular Filtration Rate > 60 mL/min (>60) Glucose Level 110 MG/DL (74-106) Calcium Level 9.0 MG/DL (8.5-10.1) Total Bilirubin 1.1 MG/DL (0.2-1.0) Direct Bilirubin 0.2 MG/DL (0.0-0.3) Aspartate Amino Transf (AST/SGOT) 17 U/L (15-37) Alanine Aminotransferase (ALT/SGPT) 30 U/L (12-78) Alkaline Phosphatase 49 U/L (46-116) Total Protein 8.1 G/DL (6.4-8.2) Albumin 4.0 G/DL (3.4-5.0) Globulin 4.1 g/dL Albumin/Globulin Ratio 1.0 (1.0-2.7) Lipase 118 U/L (73-393) Subjective ROS Limited/Unobtainable: No Allergies: Uncoded Allergies: MINOCYLES MX (Allergy, Unknown, 02/18/18) Objective Last 24 Hour Vital Signs Date Time Temp Pulse Resp B/P (MAP) Pulse Ox O2 Delivery O2 Flow Rate FiO2 02/19/18 16:00 99 02/19/18 16:00 99.4 77 18 106/58 (74) 98 02/19/18 12:22 99.1 02/19/18 12:00 84 02/19/18 12:00 100.9 96 18 112/69 (83) 97 02/19/18 09:00 Room Air 02/19/18 08:00 100.3 92 18 98/59 (72) 98 02/19/18 05:30 100.9 96 24 105/62 (76) 100 02/19/18 05:25 Room Air 02/19/18 05:08 97 02/19/18 04:55 99.6 105 18 98/51 99 Room Air 02/19/18 04:34 99.6 02/19/18 04:30 99.6 105 18 98/51 99 Room Air 02/19/18 02:52 100.2 116 18 96/52 99 Room Air 02/19/18 01:35 99.1 118 18 97/51 99 Room Air 02/19/18 00:07 99.9 02/18/18 23:08 99.9 108 18 87/43 02/18/18 21:33 102.2 02/18/18 21:33 102.2 Intake and Output 02/18/18 02/19/18 19:00 07:00 Intake Total 5120 ml Balance 5120 ml Intake Oral 120 ml IV Total 5000 ml # Voids 2 # Bowel Movements 1 Laboratory Tests 02/19/18 03:00: Lactic Acid Level 0.90 Current Medications Medications (Trade) Dose Ordered Sig/Анна Route PRN Reason Start Time Stop Time Status Last Admin Dose Admin Acetaminophen (Tylenol) 650 mg Q4H PRN ORAL Mild Pain/Temp > 100.5 02/19/18 06:00 03/21/18 05:59 02/19/18 17:50 Ciprofloxacin 200 ml @ 200 mls/hr Q12HR@0300,1500 IV 02/19/18 15:00 02/26/18 14:59 02/19/18 15:06 Dextrose/Sodium Chloride 1,000 ml @ 125 mls/hr Q8H IV 02/19/18 15:05 03/21/18 15:04 02/19/18 15:06 Enoxaparin Sodium (Lovenox) 40 mg DAILY SUBQ 02/19/18 09:00 03/21/18 08:59 Metronidazole 100 ml @ 100 mls/hr Q8H IVPB 02/19/18 16:00 02/26/18 15:59 02/19/18 17:26 Morphine Sulfate (Morphine Sulfate) 3 mg Q4H PRN IVP Severe Pain (Pain Scale 7-10) 02/19/18 14:15 02/26/18 05:59 02/19/18 20:14 Ondansetron HCl (Zofran) 4 mg Q6H PRN IVP Nausea & Vomiting 02/19/18 06:00 03/21/18 05:59 02/19/18 17:54 Sodium Chloride 550 ml @ 999 mls/hr Q6H PRN IV SBP <105 02/19/18 06:45 03/21/18 06:44 Kye Jones MD Feb 19, 2018 21:17
--- NOTE | 2018-02-19 22:45 | History and Physical Report ---
DATE OF ADMISSION: 02/19/2018 SOURCE OF INFORMATION: The patient and EMR. HISTORY OF PRESENT ILLNESS: The patient is a 27-year-old female. 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 The patient complaining of the episodes of severe diarrhea, started for the last three days associated with nausea. The patient denies any fever. The patient complains of low-grade fever. The patient denies any headache. Denies any blood in the stool or any vomitus. REVIEW OF SYSTEMS: All 12 elements of review of systems reviewed. Pertinent positives and negatives as above. PAST SURGICAL HISTORY: Denies. ALLERGIES: To minoxidil. CURRENT HOSPITAL MEDICATIONS: Acetaminophen and Zofran. SOCIAL HISTORY: The patient denies history of illicit drug abuse, smoking, or alcohol abuse. PHYSICAL EXAMINATION: VITAL SIGNS: Blood pressure , temperature 102.2 degrees, respiratory rate 18, and pulse oximetry 98% on room air. HEAD AND NECK: Atraumatic and normocephalic. CHEST: Clear to auscultation. No wheezing. No crackles. ABDOMEN: Soft. No organomegaly. Bowel sounds are normal. MUSCULOSKELETAL: No gross focal lateralized motor deficit. NEUROLOGIC: Awake, alert, and oriented x3. LABORATORY DATA: Dated 02/18/2018, WBC 8.4, hemoglobin 15.7, and platelet count of 164,000. Sodium 139, potassium 3.6, BUN 15, and creatinine 0.8. ALT and AST are within normal limits. Urinalysis is equivocal. ASSESSMENT: 1. Gastroenteritis - differential diagnosis, bacterial versus viral. 2. Abnormal blood sugar. 3. Abnormal liver function tests. 4. Abnormal urinalysis, equivocal. PLAN OF CARE: Given the presence of fever and severity of symptoms, I would start the IV antibiotic. We will consult with Infectious Disease. Continue with the IV hydration. Keep NPO. Notify GI. Kinza Forte M.D. DR: Kathie JOB#: [id number] CC:
[2018-02-20] VITALS: BP 93/52
--- NOTE | 2018-02-20 01:45 | Consultation ---
DATE OF CONSULTATION: 02/19/2018 REFERRING PHYSICIAN: Kinza Forte M.D. REASON FOR CONSULTATION: Management of presyncope. 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 She has not been able to keep anything down for about a day. Diarrhea was consistent with watery stools, but no blood. She also complains of myalgia and arthralgias and some mild epigastric pain. At the time of arrival to the hospital, she felt dizzy when standing up, also had slight giddy, but denied any chest pain or shortness of breath. Initial blood pressure was 116/73 mmHg lying down with pulse of 92. She was febrile and temperature 102.2. In the emergency department, the patient underwent blood test, which revealed slight decrease in bicarbonate with borderline potassium level at 3.6. Normal renal function and normal lipase. She also had left shift with CBC. She was admitted to telemetry with diagnosis of possible gastroenteritis. She was given about 5 L of fluids in the emergency department as well as on her arrival to the floor. She received 1 more liter. She was hypotensive in the emergency department and tachycardic, which improved with the fluid therapy. She was started on Cipro and Flagyl in the emergency department, was admitted to telemetry unit. At the time of my evaluation, the patient did not have any chest pain, shortness of breath, dizziness, or lightheadedness. PAST MEDICAL HISTORY: None. ALLERGIES: Allergic to and eggs. PAST SURGICAL HISTORY: None. 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 No history of tobacco, alcohol, or illicit drug use. REVIEW OF SYSTEMS: HEENT: Some headache. Dizziness and lightheadedness improved with flu therapy. CONSTITUTIONAL: Has some generalized weakness, some fever, and some loss of appetite and weight loss. CARDIOVASCULAR: Denies any chest pain, shortness of breath, PND, orthopnea, leg swelling, or palpitations. Positive for presyncope. PULMONARY: Denies any cough, hemoptysis, or wheezing. GASTROINTESTINAL: Nausea, vomiting, and abdominal pain as well as diarrhea. No gastrointestinal bleed. GENITOURINARY: Denies any hematuria, dysuria, or incontinence. NEUROLOGY: Denies any motor dysfunction, sensory deficit, or altered speech. MEDICATIONS: List of medications at home, acetaminophen 650 mg q.4 h. p.r.n. headache and temperature above 101 as well as Zofran 4 mg. PHYSICAL EXAMINATION: VITAL SIGNS: Blood pressure was 116/73, pulse of 92, respirations 18, temperature 102.3 degrees Fahrenheit, and O2 saturation is 99% on room air. Upon arrival to the floor, blood pressure was as low as 87/43, heart rate of 108, temperature 99.9 degrees Fahrenheit, and respiratory rate 18. GENERAL: This is a very pleasant 27-year-old female, in no apparent respiratory distress. Alert and oriented. HEENT: Atraumatic and normocephalic. Anicteric. Pupils are equal, round, and reactive to light and accommodation. Extraocular movements intact. NECK: JVP less than 5 cm. No carotid bruits. Carotid upstrokes 2+ bilaterally. CARDIOVASCULAR: Normal S1 and S2. Regular rate and rhythm. No murmurs, gallops, or rubs. Tachycardic. PMI is at fourth intercostal space in the midclavicular. LUNGS: Clear to auscultation bilaterally. ABDOMEN: Soft, nontender, and nondistended. No hepatosplenomegaly. Positive bowel sounds. EXTREMITIES: No evidence of edema, clubbing or cyanosis. LABORATORY FINDINGS: Sodium 139, potassium 3.6, chloride 104, bicarbonate 22, BUN of 15, creatinine 0.8 glucose is 110, and calcium is 29.0. CBC showed WBC 8.4, hemoglobin of 15.7, hematocrit of 46.9, and platelet count 164,000 with 88% neutrophil. ASSESSMENT AND PLAN: This is a very unfortunate 37-year-old female, seen in Cardiology consultation. 1. Hypovolemia, most likely the reason for the patient's hypotension and hypovolemia is secondary to combination of nausea, vomiting, and diarrhea. The patient's condition has improved after five liters of fluid therapy. We will continue to measure the electrolytes and replace accordingly. The fluid of choice will be normal saline with the addition of potassium. 2. The patient will also continue oral liquids. 3. No further cardiac test is recorded at this time. 4. Gastroenteritis. I would like to thank, Dr. Forte, for allowing me to participate in the care of this patient. Cahrly Stack M.D. DR: JENNIFER JOB#: [id number] CC:
[2018-02-20 04:00] VITALS: BP 91/53
[2018-02-20] MEDS: Morphine Sulfate 4mg/ml Inj (IV/IM USE ONLY) IVP PRN (07:55)
[2018-02-20] MEDS: D5NS 1,000 ML IV SCH ×3 (07:55→19:44)
[2018-02-20] MEDS: Enoxaparin 40mg Inj SUBQ SCH (08:10)
[2018-02-20 08:43] VITALS: BP 91/55
[2018-02-20 09:19] LABS: BASOPHILS % (AUTO) 0.4 % (0.0-2.0); EOSINOPHILS % (AUTO) 1.4 % (0.0-3.0); HEMATOCRIT 34.9 % (37.0-47.0); HEMOGLOBIN 11.9 G/DL (12.0-16.0); LYMPHOCYTES % (AUTO) 18.2 % (20.0-45.0); MEAN CORPUSCULAR VOLUME 86 FL (80-99); MONOCYTES % (AUTO) 17.2 % (1.0-10.0); NEUTROPHILS % (AUTO) 62.8 % (45.0-75.0); PLATELET COUNT 116 K/UL (150-450); RED BLOOD COUNT 4.07 M/UL (4.20-5.40); RED CELL DISTRIBUTION WIDTH 11.2 % (11.6-14.8); WHITE BLOOD COUNT 4.8 K/UL (4.8-10.8)
--- NOTE | 2018-02-20 10:41 | GI Progress Note ---
Assessment/Plan Problems: (1) Dehydration ICD Codes: E86.0 - Dehydration SNOMED: 74450897 (2) Diarrhea ICD Codes: R19.7 - Diarrhea, unspecified SNOMED: 91680727 (3) Fever ICD Codes: R50.9 - Fever, unspecified SNOMED: 506867813 (4) Colitis ICD Codes: K52.9 - Noninfective gastroenteritis and colitis, unspecified SNOMED: 08861182 (5) Gastroenteritis ICD Codes: K52.9 - Noninfective gastroenteritis and colitis, unspecified SNOMED: 14608778 Status: unchanged Status Narrative Discussed with Dr. Ceja. Assessment/Plan symptomatic treatment zofran prn fu stool studies, cdiff CLD, advance as tolerated IV/PO hydration + electrolyte correction fu labs The patient was seen and examined at bedside and all new and available data was reviewed in the patients chart. I agree with the above findings, impression and plan. (Patient seen earlier today. Signature stamp does not reflect patient encounter time.). - Hever Ceja MD Subjective Subjective still has nausea without vomiting mild headache diarrhea still present Objective Last 24 Hour Vital Signs Date Time Temp Pulse Resp B/P (MAP) Pulse Ox O2 Delivery O2 Flow Rate FiO2 02/20/18 09:09 Room Air 02/20/18 08:43 99.3 77 18 91/55 (67) 99 02/20/18 08:25 99.3 02/20/18 07:47 76 02/20/18 04:00 98.4 80 18 91/53 (66) 99 02/20/18 04:00 74 02/20/18 00:00 68 02/20/18 00:00 100.4 74 18 93/52 (66) 98 02/19/18 23:28 100.4 02/19/18 21:00 Room Air 02/19/18 20:00 97 02/19/18 20:00 99.7 102 20 94/56 (69) 97 02/19/18 16:00 99 02/19/18 16:00 99.4 77 18 106/58 (74) 98 02/19/18 12:00 84 02/19/18 12:00 100.9 96 18 112/69 (83) 97 Intake and Output 02/19/18 02/20/18 19:00 07:00 Intake Total 1840 ml 200 ml Balance 1840 ml 200 ml Intake Oral 240 ml 200 ml IV Total 1600 ml # Voids 3 # Bowel Movements 3 3 Laboratory Tests Test 02/19/18 13:49 02/20/18 08:00 Giardia Antigen Pending White Blood Count 4.8 K/UL (4.8-10.8) Red Blood Count 4.07 M/UL (4.20-5.40) L Hemoglobin 11.9 G/DL (12.0-16.0) L Hematocrit 34.9 % (37.0-47.0) L Mean Corpuscular Volume 86 FL (80-99) Mean Corpuscular Hemoglobin 29.3 PG (27.0-31.0) Mean Corpuscular Hemoglobin Concent 34.1 G/DL (32.0-36.0) Red Cell Distribution Width 11.2 % (11.6-14.8) L Platelet Count 116 K/UL (150-450) L Mean Platelet Volume 8.4 FL (6.5-10.1) Neutrophils (%) (Auto) 62.8 % (45.0-75.0) Lymphocytes (%) (Auto) 18.2 % (20.0-45.0) L Monocytes (%) (Auto) 17.2 % (1.0-10.0) H Eosinophils (%) (Auto) 1.4 % (0.0-3.0) Basophils (%) (Auto) 0.4 % (0.0-2.0) Sodium Level Pending Potassium Level Pending Chloride Level Pending Carbon Dioxide Level Pending Blood Urea Nitrogen Pending Creatinine Pending Estimat Glomerular Filtration Rate Pending Glucose Level Pending Calcium Level Pending Magnesium Level 1.6 MG/DL (1.8-2.4) L Total Bilirubin Pending Aspartate Amino Transf (AST/SGOT) Pending Alanine Aminotransferase (ALT/SGPT) Pending Alkaline Phosphatase Pending Total Protein Pending Albumin Pending Globulin Pending Height (Feet): 5 Height (Inches): 2.00 Weight (Pounds): 120 General Appearance: WD/WN, no apparent distress, alert, thin Cardiovascular: normal rate Respiratory/Chest: normal breath sounds, no respiratory distress Abdominal Exam: normal bowel sounds, non tender, soft Extremities: normal range of motion, non-tender MaReji hardin NP Feb 20, 2018 10:41
[2018-02-20 11:44] VITALS: BP 104/71
[2018-02-20 11:54] LABS: ALANINE AMINOTRANSFERASE 25 U/L (12-78); ALBUMIN/GLOBULIN RATIO 0.9 (1.0-2.7); ALKALINE PHOSPHATASE 40 U/L (46-116); ANION GAP 10 mmol/L (5-15); ASPARTATE AMINO TRANSFERASE 19 U/L (15-37); BILIRUBIN,TOTAL 0.5 MG/DL (0.2-1.0); BLOOD UREA NITROGEN 2 mg/dL (7-18); CALCIUM 7.7 MG/DL (8.5-10.1); CARBON DIOXIDE 25 MMOL/L (21-32); CHLORIDE 107 MMOL/L (98-107); CREATININE 0.7 MG/DL (0.55-1.30); POTASSIUM 3.1 MMOL/L (3.5-5.1); SODIUM 142 MMOL/L (136-145)
--- NOTE | 2018-02-20 14:41 | Infectious Diseases Prog Note ---
Assessment/Plan Problems: (1) Gastroenteritis Assessment & Plan: bacterial VS viral , with high fever suggestive of bacterial , continue ciprofloxacin empirically and flagyl , pending Giardia antigen and stool culture with OVA/Parasites , keep in contact isolation for now pending stool culture . C diff toxin is negative (2) Diarrhea Assessment & Plan: suspect infectious in eiteology with high fever due to recent contact with child who had diarrhea illness , continue hydration and antibiotics empirically, avoid anti diarrhea meds (3) Fever Assessment & Plan: due to the above , continue antibiotics and tylenol , pending cultures and stool study (4) Dehydration Assessment & Plan: due to the above, continue ivf for hydration and encourage oral intake Subjective Constitutional: Reports: fever, anorexia HEENT: Reports: no symptoms Respiratory: Reports: no symptoms Breasts: Reports: no symptoms Cardiovascular: Reports: no symptoms Gastrointestinal/Abdominal: Reports: nausea, vomiting, diarrhea, bloating Genitourinary: Reports: no symptoms Neurologic: Reports: no symptoms Psychiatric: Reports: no symptoms Skin: Reports: no symptoms Endocrine: Reports: no symptoms Hematologic: Reports: no symptoms Musculoskeletal: Reports: no symptoms Allergies: Uncoded Allergies: MINOCYLES MX (Allergy, Unknown, 02/18/18) Objective Vital Signs Last 24 Hour Vital Signs Date Time Temp Pulse Resp B/P (MAP) Pulse Ox O2 Delivery O2 Flow Rate FiO2 02/20/18 11:53 94 02/20/18 11:44 99.3 72 18 104/71 (82) 99 02/20/18 09:09 Room Air 02/20/18 08:43 99.3 77 18 91/55 (67) 99 02/20/18 08:25 99.3 02/20/18 07:47 76 02/20/18 04:00 98.4 80 18 91/53 (66) 99 02/20/18 04:00 74 02/20/18 00:00 68 02/20/18 00:00 100.4 74 18 93/52 (66) 98 02/19/18 23:28 100.4 02/19/18 21:00 Room Air 02/19/18 20:00 97 02/19/18 20:00 99.7 102 20 94/56 (69) 97 02/19/18 16:00 99 02/19/18 16:00 99.4 77 18 106/58 (74) 98 Height (Feet): 5 Height (Inches): 2.00 Weight (Pounds): 120 General Appearance: WD/WN, no acute distress HEENT: normocephalic, atraumatic, anicteric, mucous membranes moist, PERRL, EOMI, pharynx normal, supple, no JVD Respiratory/Chest: chest wall non-tender, lungs clear, normal breath sounds, no respiratory distress, no accessory muscle use Cardiovascular: normal peripheral pulses, normal rate, regular rhythm, no gallop/murmur, no JVD Abdomen: soft, non tender, no organomegaly, non distended, no mass, no scars, hyperactive bowel sounds Genitourinary: normal external genitalia Extremities: no cyanosis, no clubbing Skin: no rash, no lesions, no ulcers Neurologic/Psychiatric: 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 grossly normal, no motor/sensory deficits, alert, oriented x 3, responsive Lymphatic: no neck adenopathy, no groin adenopathy Musculoskeletal: normal muscle bulk, no effusion Microbiology Date/Time Source Procedure Growth Status 02/19/18 03:15 Blood Blood Culture - Preliminary NO GROWTH AFTER 24 HOURS Resulted 02/19/18 03:00 Blood Blood Culture - Preliminary NO GROWTH AFTER 24 HOURS Resulted 02/19/18 13:49 Stool Stool Culture Pending Resulted 02/19/18 13:49 Stool Clostridium difficile Toxin Assay - Final Resulted Laboratory Tests Test 02/20/18 08:00 White Blood Count 4.8 K/UL (4.8-10.8) Red Blood Count 4.07 M/UL (4.20-5.40) L Hemoglobin 11.9 G/DL (12.0-16.0) L Hematocrit 34.9 % (37.0-47.0) L Mean Corpuscular Volume 86 FL (80-99) Mean Corpuscular Hemoglobin 29.3 PG (27.0-31.0) Mean Corpuscular Hemoglobin Concent 34.1 G/DL (32.0-36.0) Red Cell Distribution Width 11.2 % (11.6-14.8) L Platelet Count 116 K/UL (150-450) L Mean Platelet Volume 8.4 FL (6.5-10.1) Neutrophils (%) (Auto) 62.8 % (45.0-75.0) Lymphocytes (%) (Auto) 18.2 % (20.0-45.0) L Monocytes (%) (Auto) 17.2 % (1.0-10.0) H Eosinophils (%) (Auto) 1.4 % (0.0-3.0) Basophils (%) (Auto) 0.4 % (0.0-2.0) Sodium Level 142 MMOL/L (136-145) Potassium Level 3.1 MMOL/L (3.5-5.1) L Chloride Level 107 MMOL/L (98-107) Carbon Dioxide Level 25 MMOL/L (21-32) Anion Gap 10 mmol/L (5-15) Blood Urea Nitrogen 2 mg/dL (7-18) L Creatinine 0.7 MG/DL (0.55-1.30) Estimat Glomerular Filtration Rate > 60 mL/min (>60) Glucose Level 101 MG/DL (74-106) Calcium Level 7.7 MG/DL (8.5-10.1) L Magnesium Level 1.6 MG/DL (1.8-2.4) L Total Bilirubin 0.5 MG/DL (0.2-1.0) Aspartate Amino Transf (AST/SGOT) 19 U/L (15-37) Alanine Aminotransferase (ALT/SGPT) 25 U/L (12-78) Alkaline Phosphatase 40 U/L (46-116) L Total Protein 6.2 G/DL (6.4-8.2) L Albumin 3.0 G/DL (3.4-5.0) L Globulin 3.2 g/dL Albumin/Globulin Ratio 0.9 (1.0-2.7) L Current Medications Medications (Trade) Dose Ordered Sig/Анна Route PRN Reason Start Time Stop Time Status Last Admin Dose Admin Acetaminophen (Tylenol) 650 mg Q4H PRN ORAL Mild Pain/Temp > 100.5 02/19/18 06:00 03/21/18 05:59 02/19/18 22:58 Ciprofloxacin 200 ml @ 200 mls/hr Q12HR@0300,1500 IV 02/19/18 15:00 02/26/18 14:59 02/20/18 03:06 Dextrose/Sodium Chloride 1,000 ml @ 125 mls/hr Q8H IV 02/19/18 15:05 03/21/18 15:04 02/20/18 07:55 Enoxaparin Sodium (Lovenox) 40 mg DAILY SUBQ 02/19/18 09:00 03/21/18 08:59 Metronidazole 100 ml @ 100 mls/hr Q8H IVPB 02/19/18 16:00 02/26/18 15:59 02/20/18 08:08 Morphine Sulfate (Morphine Sulfate) 3 mg Q4H PRN IVP Severe Pain (Pain Scale 7-10) 02/19/18 14:15 02/26/18 05:59 02/20/18 07:55 Ondansetron HCl (Zofran) 4 mg Q6H PRN IVP Nausea & Vomiting 02/19/18 06:00 03/21/18 05:59 02/20/18 10:30 Potassium Chloride 100 ml @ 100 mls/hr Q1HR IVPB 02/20/18 14:00 02/20/18 17:59 02/20/18 13:24 Potassium Chloride (K-Dur) 40 meq ONCE ORAL 02/20/18 15:00 02/20/18 16:00 Sodium Chloride 550 ml @ 999 mls/hr Q6H PRN IV SBP <105 02/19/18 06:45 03/21/18 06:44 Claudia Garnica M.D. Feb 20, 2018 14:41
[2018-02-20 15:42] VITALS: BP_SYST 100; BP_SYST 119; BP_DIAS 50; BP_DIAS 75
[2018-02-20] MEDS ORDERED: Metoclopramide 10mg/2ml Inj IVP PRN (15:45)
--- NOTE | 2018-02-20 16:31 | General Progress Note ---
Assessment/Plan Assessment/Plan S: still I have diarrhea O: Persistent Diarrhea, Low grade fever, didn't tolerate PO diet. PHYSICAL EXAMINATION: HEAD AND NECK: Atraumatic and normocephalic. CHEST: Clear to auscultation. No wheezing. No crackles. ABDOMEN: Soft. No organomegaly. Bowel sounds are normal. MUSCULOSKELETAL: No gross focal lateralized motor deficit. NEUROLOGIC: Awake, alert, and oriented x3. Medication : reviewed and reconciled in the chart , including Reglan ASSESSMENT: 1. Gastroenteritis - differential diagnosis, bacterial versus viral. 2. Abnormal blood sugar. 3. Abnormal liver function tests. 4. Abnormal urinalysis, equivocal. PLan: Continue NPO and IV abx pending cultures Transfer of care to contracted hospitalist, Dr Aly. Hands off completed over the phone. Comment: I attest that I saw patient as a panel ER physician, while additional insurance clarification had been done by admission office. My care was provided under the Emergency clause Subjective Allergies: Uncoded Allergies: MINOCYLES MX (Allergy, Unknown, 02/18/18) Objective Last 24 Hour Vital Signs Date Time Temp Pulse Resp B/P (MAP) Pulse Ox O2 Delivery O2 Flow Rate FiO2 02/20/18 15:42 97.3 74 18 100/50 (67) 99 02/20/18 11:53 94 02/20/18 11:44 99.3 72 18 104/71 (82) 99 02/20/18 09:09 Room Air 02/20/18 08:43 99.3 77 18 91/55 (67) 99 02/20/18 08:25 99.3 02/20/18 07:47 76 02/20/18 04:00 98.4 80 18 91/53 (66) 99 02/20/18 04:00 74 02/20/18 00:00 68 02/20/18 00:00 100.4 74 18 93/52 (66) 98 02/19/18 23:28 100.4 02/19/18 21:00 Room Air 02/19/18 20:00 97 02/19/18 20:00 99.7 102 20 94/56 (69) 97 Intake and Output 02/19/18 02/20/18 18:59 06:59 Intake Total 1715 ml 325 ml Balance 1715 ml 325 ml Intake Oral 240 ml 200 ml IV Total 1475 ml 125 ml # Voids 3 # Bowel Movements 3 3 Laboratory Tests 02/20/18 08:00: White Blood Count 4.8, Red Blood Count 4.07L, Hemoglobin 11.9L, Hematocrit 34.9L , Mean Corpuscular Volume 86, Mean Corpuscular Hemoglobin 29.3, Mean Corpuscular Hemoglobin Concent 34.1, Red Cell Distribution Width 11.2L, Platelet Count 116L, Mean Platelet Volume 8.4, Neutrophils (%) (Auto) 62.8, Lymphocytes (%) (Auto) 18.2L, Monocytes (%) (Auto) 17.2H, Eosinophils (%) (Auto ) 1.4, Basophils (%) (Auto) 0.4, Sodium Level 142, Potassium Level 3.1L, Chloride Level 107, Carbon Dioxide Level 25, Anion Gap 10, Blood Urea Nitrogen 2L, Creatinine 0.7, Estimat Glomerular Filtration Rate > 60, Glucose Level 101, Calcium Level 7.7L, Magnesium Level 1.6L, Total Bilirubin 0.5, Aspartate Amino Transf (AST/SGOT) 19, Alanine Aminotransferase (ALT/SGPT) 25, Alkaline Phosphatase 40L, Total Protein 6.2L, Albumin 3.0L, Globulin 3.2, Albumin/ Globulin Ratio 0.9L Height (Feet): 5 Height (Inches): 2.00 Weight (Pounds): 120 Kinza Forte MD Feb 20, 2018 16:31
[2018-02-20 20:00] VITALS: BP 100/66
--- NOTE | 2018-02-20 23:03 | Pulmonology Progress Note ---
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 She's been unable to keep anything down for 1 day. She's also had watery stools that have change in smell. She's not passed any blood in not vomiting any blood. She also has myalgias and arthralgias. There is a slight amount of epigastric pain. She's not been able keep down any medication. She does not have a Zofran. Pain in body 7/10, abdomen 4/10. Some improvement with moving her bowels. She denies any dysuria. LNMP normal. She feels dizzy when she stands up. Slight headache. 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 Last Menstrual Period: 2 days ago Past Medical History: No Stated History Review of Systems All Other Systems: negative except mentioned in HPI Physical Exam Vital Signs Noted General Appearance: well appearing, no apparent distress, GCS 15 Head: normocephalic Eyes: bilateral eye normal inspection, bilateral eye PERRL ENT: moist mucus membranes Neck: supple Respiratory: lungs clear, normal breath sounds Cardiovascular #1: tachycardia Cardiovascular #2: 2+ radial (R) Gastrointestinal: normal inspection, normal bowel sounds, non tender, soft, non -distended, no guarding, no rebound Genitourinary: no CVA tenderness Musculoskeletal: back normal, normal range of motion Neurologic: alert, oriented x3, grossly normal Psychiatric: mood/affect normal Skin: normal inspection, warm/dry Impression Possible Infectious Diarrhea with fever. She is tachycardic and symptomatic. Plan: IV hydration, bolus PRN, Zofran and [place]. Labs and urinalysis. Tolerating oral fluids Antibiotics: Cipro and Flagyl IV PPX O2 PRN Laboratory Tests Test 02/18/18 20:45 02/18/18 21:00 Urine Color Yellow Urine Appearance Clear Urine pH 5 (4.5-8.0) Urine Specific [place] 1.020 (1.005-1.035) Urine Protein 2+ (NEGATIVE) H Urine Glucose (UA) Negative (NEGATIVE) Urine Ketones 4+ (NEGATIVE) H Urine Blood 2+ (NEGATIVE) H Urine Nitrite Negative (NEGATIVE) Urine Bilirubin Negative (NEGATIVE) Urine Urobilinogen Normal MG/DL (0.0-1.0) Urine Leukocyte Esterase 1+ (NEGATIVE) H Urine RBC 5-10 /HPF (0 - 2) H Urine WBC 2-4 /HPF (0 - 2) Urine Squamous Epithelial Cells Few /LPF (NONE/OCC) Urine Amorphous Sediment Few /LPF (NONE) H Urine Bacteria Few /HPF (NONE) Urine HCG, Qualitative Negative (NEGATIVE) White Blood Count 8.4 K/UL (4.8-10.8) Red Blood Count 5.43 M/UL (4.20-5.40) H Hemoglobin 15.7 G/DL (12.0-16.0) Hematocrit 46.9 % (37.0-47.0) Mean Corpuscular Volume 86 FL (80-99) Mean Corpuscular Hemoglobin 28.9 PG (27.0-31.0) Mean Corpuscular Hemoglobin Concent 33.5 G/DL (32.0-36.0) Red Cell Distribution Width 11.3 % (11.6-14.8) L Platelet Count 164 K/UL (150-450) Mean Platelet Volume 8.4 FL (6.5-10.1) Neutrophils (%) (Auto) % (45.0-75.0) Lymphocytes (%) (Auto) % (20.0-45.0) Monocytes (%) (Auto) % (1.0-10.0) Eosinophils (%) (Auto) % (0.0-3.0) Basophils (%) (Auto) % (0.0-2.0) Differential Total Cells Counted 100 Neutrophils % (Manual) 88 % (45-75) H Lymphocytes % (Manual) 5 % (20-45) L Monocytes % (Manual) 4 % (1-10) Eosinophils % (Manual) 0 % (0-3) Basophils % (Manual) 0 % (0-2) Band Neutrophils 3 % (0-8) Platelet Estimate Adequate Platelet Morphology Normal Red Blood Cell Morphology Normal Sodium Level 139 MMOL/L (136-145) Potassium Level 3.6 MMOL/L (3.5-5.1) Chloride Level 104 MMOL/L (98-107) Carbon Dioxide Level 22 MMOL/L (21-32) Anion Gap 13 mmol/L (5-15) Blood Urea Nitrogen 15 mg/dL (7-18) Creatinine 0.8 MG/DL (0.55-1.30) Estimate Glomerular Filtration Rate > 60 mL/min (>60) Glucose Level 110 MG/DL (74-106) H Calcium Level 9.0 MG/DL (8.5-10.1) Total Bilirubin 1.1 MG/DL (0.2-1.0) H Direct Bilirubin 0.2 MG/DL (0.0-0.3) Aspartate Amino Transferase (AST) 17 U/L (15-37) Alanine Aminotransferase (ALT) 30 U/L (12-78) Alkaline Phosphatase 49 U/L (46-116) Total Protein 8.1 G/DL (6.4-8.2) Albumin 4.0 G/DL (3.4-5.0) Globulin 4.1 g/dL Albumin/Globulin Ratio 1.0 (1.0-2.7) Lipase 118 U/L (73-393) Labs Test 02/18/18 20:45 02/18/18 21:00 Urine Color Yellow Urine Appearance Clear Urine pH 5 (4.5-8.0) Urine Specific [place] 1.020 (1.005-1.035) Urine Protein 2+ (NEGATIVE) Urine Glucose (UA) Negative (NEGATIVE) Urine Ketones 4+ (NEGATIVE) Urine Blood 2+ (NEGATIVE) Urine Nitrite Negative (NEGATIVE) Urine Bilirubin Negative (NEGATIVE) Urine Urobilinogen Normal MG/DL (0.0-1.0) Urine Leukocyte Esterase 1+ (NEGATIVE) Urine RBC 5-10 /HPF (0 - 2) Urine WBC 2-4 /HPF (0 - 2) Urine Squamous Epithelial Cells Few /LPF (NONE/OCC) Urine Amorphous Sediment Few /LPF (NONE) Urine Bacteria Few /HPF (NONE) Urine HCG, Qualitative Negative (NEGATIVE) White Blood Count 8.4 K/UL (4.8-10.8) Red Blood Count 5.43 M/UL (4.20-5.40) Hemoglobin 15.7 G/DL (12.0-16.0) Hematocrit 46.9 % (37.0-47.0) Mean Corpuscular Volume 86 FL (80-99) Mean Corpuscular Hemoglobin 28.9 PG (27.0-31.0) Mean Corpuscular Hemoglobin Concent 33.5 G/DL (32.0-36.0) Red Cell Distribution Width 11.3 % (11.6-14.8) Platelet Count 164 K/UL (150-450) Mean Platelet Volume 8.4 FL (6.5-10.1) Neutrophils (%) (Auto) % (45.0-75.0) Lymphocytes (%) (Auto) % (20.0-45.0) Monocytes (%) (Auto) % (1.0-10.0) Eosinophils (%) (Auto) % (0.0-3.0) Basophils (%) (Auto) % (0.0-2.0) Differential Total Cells Counted 100 Neutrophils % (Manual) 88 % (45-75) Lymphocytes % (Manual) 5 % (20-45) Monocytes % (Manual) 4 % (1-10) Eosinophils % (Manual) 0 % (0-3) Basophils % (Manual) 0 % (0-2) Band Neutrophils 3 % (0-8) Platelet Estimate Adequate Platelet Morphology Normal Red Blood Cell Morphology Normal Sodium Level 139 MMOL/L (136-145) Potassium Level 3.6 MMOL/L (3.5-5.1) Chloride Level 104 MMOL/L (98-107) Carbon Dioxide Level 22 MMOL/L (21-32) Anion Gap 13 mmol/L (5-15) Blood Urea Nitrogen 15 mg/dL (7-18) Creatinine 0.8 MG/DL (0.55-1.30) Estimat Glomerular Filtration Rate > 60 mL/min (>60) Glucose Level 110 MG/DL (74-106) Calcium Level 9.0 MG/DL (8.5-10.1) Total Bilirubin 1.1 MG/DL (0.2-1.0) Direct Bilirubin 0.2 MG/DL (0.0-0.3) Aspartate Amino Transf (AST/SGOT) 17 U/L (15-37) Alanine Aminotransferase (ALT/SGPT) 30 U/L (12-78) Alkaline Phosphatase 49 U/L (46-116) Total Protein 8.1 G/DL (6.4-8.2) Albumin 4.0 G/DL (3.4-5.0) Globulin 4.1 g/dL Albumin/Globulin Ratio 1.0 (1.0-2.7) Lipase 118 U/L (73-393) Subjective ROS Limited/Unobtainable: No Allergies: Uncoded Allergies: MINOCYLES MX (Allergy, Unknown, 02/18/18) Objective Last 24 Hour Vital Signs Date Time Temp Pulse Resp B/P (MAP) Pulse Ox O2 Delivery O2 Flow Rate FiO2 02/20/18 21:00 Room Air 02/20/18 20:00 68 02/20/18 20:00 98.1 88 19 100/66 (77) 92 02/20/18 16:00 73 02/20/18 15:42 97.3 75 18 119/75 (90) 99 02/20/18 11:53 94 02/20/18 11:44 99.3 72 18 104/71 (82) 99 02/20/18 09:09 Room Air 02/20/18 08:43 99.3 77 18 91/55 (67) 99 02/20/18 08:25 99.3 02/20/18 07:47 76 02/20/18 04:00 98.4 80 18 91/53 (66) 99 02/20/18 04:00 74 02/20/18 00:00 68 02/20/18 00:00 100.4 74 18 93/52 (66) 98 02/19/18 23:28 100.4 Intake and Output 02/19/18 02/20/18 19:00 07:00 Intake Total 1840 ml 200 ml Balance 1840 ml 200 ml Intake Oral 240 ml 200 ml IV Total 1600 ml # Voids 3 # Bowel Movements 3 3 Microbiology Date/Time Source Procedure Growth Status 02/19/18 03:15 Blood Blood Culture - Preliminary NO GROWTH AFTER 24 HOURS Resulted 02/19/18 03:00 Blood Blood Culture - Preliminary NO GROWTH AFTER 24 HOURS Resulted 02/19/18 13:49 Stool Stool Culture Pending Resulted 02/19/18 13:49 Stool Clostridium difficile Toxin Assay - Final Resulted Laboratory Tests 02/20/18 08:00: White Blood Count 4.8, Red Blood Count 4.07L, Hemoglobin 11.9L, Hematocrit 34.9L , Mean Corpuscular Volume 86, Mean Corpuscular Hemoglobin 29.3, Mean Corpuscular Hemoglobin Concent 34.1, Red Cell Distribution Width 11.2L, Platelet Count 116L, Mean Platelet Volume 8.4, Neutrophils (%) (Auto) 62.8, Lymphocytes (%) (Auto) 18.2L, Monocytes (%) (Auto) 17.2H, Eosinophils (%) (Auto ) 1.4, Basophils (%) (Auto) 0.4, Sodium Level 142, Potassium Level 3.1L, Chloride Level 107, Carbon Dioxide Level 25, Anion Gap 10, Blood Urea Nitrogen 2L, Creatinine 0.7, Estimat Glomerular Filtration Rate > 60, Glucose Level 101, Calcium Level 7.7L, Magnesium Level 1.6L, Total Bilirubin 0.5, Aspartate Amino Transf (AST/SGOT) 19, Alanine Aminotransferase (ALT/SGPT) 25, Alkaline Phosphatase 40L, Total Protein 6.2L, Albumin 3.0L, Globulin 3.2, Albumin/ Globulin Ratio 0.9L Current Medications Medications (Trade) Dose Ordered Sig/Анна Route PRN Reason Start Time Stop Time Status Last Admin Dose Admin Acetaminophen (Tylenol) 650 mg Q4H PRN ORAL Mild Pain/Temp > 100.5 02/19/18 06:00 03/21/18 05:59 02/19/18 22:58 Ciprofloxacin 200 ml @ 200 mls/hr Q12HR@0300,1500 IV 02/19/18 15:00 02/26/18 14:59 02/20/18 14:50 Dextrose/Sodium Chloride 1,000 ml @ 125 mls/hr Q8H IV 02/19/18 15:05 03/21/18 15:04 02/20/18 19:44 Enoxaparin Sodium (Lovenox) 40 mg DAILY SUBQ 02/19/18 09:00 03/21/18 08:59 Metoclopramide HCl (Reglan) 10 mg Q8H PRN IVP Nausea & Vomiting 02/20/18 15:45 03/22/18 15:44 02/20/18 19:44 Metronidazole 100 ml @ 100 mls/hr Q8H IVPB 02/19/18 16:00 02/26/18 15:59 02/20/18 16:17 Morphine Sulfate (Morphine Sulfate) 3 mg Q4H PRN IVP Severe Pain (Pain Scale 7-10) 02/19/18 14:15 02/26/18 05:59 02/20/18 07:55 Ondansetron HCl (Zofran) 4 mg Q6H PRN IVP Nausea & Vomiting 02/19/18 06:00 03/21/18 05:59 02/20/18 10:30 Sodium Chloride 550 ml @ 999 mls/hr Q6H PRN IV SBP <105 02/19/18 06:45 03/21/18 06:44 Kye Jones MD Feb 20, 2018 23:03
[2018-02-21] VITALS: BP 97/60
[2018-02-21 04:00] VITALS: BP 90/59
--- NOTE | 2018-02-21 05:25 | Cardiology Progress Note ---
Assessment/Plan Assessment/Plan LATE ENTRY PROGRESS NOTE: DOS: FEB 20, 2017 TIME THE PATIENT SEEN: 12:31pm 1. Hypotension, most likely due to volume loss, continue hydration and electrolyte replacement. 2. Acute gastroenteritis. Subjective Subjective Sinus rhythm at rate of 94. Objective Last 24 Hour Vital Signs Date Time Temp Pulse Resp B/P (MAP) Pulse Ox O2 Delivery O2 Flow Rate FiO2 02/21/18 04:00 97.5 87 20 90/59 (69) 99 02/21/18 04:00 61 02/21/18 00:00 65 02/21/18 00:00 98.2 72 19 97/60 (72) 98 02/20/18 21:00 Room Air 02/20/18 20:00 68 02/20/18 20:00 98.1 88 19 100/66 (77) 92 02/20/18 16:00 73 02/20/18 15:42 97.3 75 18 119/75 (90) 99 02/20/18 11:53 94 02/20/18 11:44 99.3 72 18 104/71 (82) 99 02/20/18 09:09 Room Air 02/20/18 08:43 99.3 77 18 91/55 (67) 99 02/20/18 08:25 99.3 02/20/18 07:47 76 Intake and Output 02/20/18 02/21/18 19:00 07:00 Intake Total 1300 ml Balance 1300 ml Intake Oral 500 ml IV Total 800 ml # Voids 5 # Bowel Movements 4 Laboratory Tests Test 02/20/18 08:00 White Blood Count 4.8 K/UL (4.8-10.8) Red Blood Count 4.07 M/UL (4.20-5.40) L Hemoglobin 11.9 G/DL (12.0-16.0) L Hematocrit 34.9 % (37.0-47.0) L Mean Corpuscular Volume 86 FL (80-99) Mean Corpuscular Hemoglobin 29.3 PG (27.0-31.0) Mean Corpuscular Hemoglobin Concent 34.1 G/DL (32.0-36.0) Red Cell Distribution Width 11.2 % (11.6-14.8) L Platelet Count 116 K/UL (150-450) L Mean Platelet Volume 8.4 FL (6.5-10.1) Neutrophils (%) (Auto) 62.8 % (45.0-75.0) Lymphocytes (%) (Auto) 18.2 % (20.0-45.0) L Monocytes (%) (Auto) 17.2 % (1.0-10.0) H Eosinophils (%) (Auto) 1.4 % (0.0-3.0) Basophils (%) (Auto) 0.4 % (0.0-2.0) Sodium Level 142 MMOL/L (136-145) Potassium Level 3.1 MMOL/L (3.5-5.1) L Chloride Level 107 MMOL/L (98-107) Carbon Dioxide Level 25 MMOL/L (21-32) Anion Gap 10 mmol/L (5-15) Blood Urea Nitrogen 2 mg/dL (7-18) L Creatinine 0.7 MG/DL (0.55-1.30) Estimat Glomerular Filtration Rate > 60 mL/min (>60) Glucose Level 101 MG/DL (74-106) Calcium Level 7.7 MG/DL (8.5-10.1) L Magnesium Level 1.6 MG/DL (1.8-2.4) L Total Bilirubin 0.5 MG/DL (0.2-1.0) Aspartate Amino Transf (AST/SGOT) 19 U/L (15-37) Alanine Aminotransferase (ALT/SGPT) 25 U/L (12-78) Alkaline Phosphatase 40 U/L (46-116) L Total Protein 6.2 G/DL (6.4-8.2) L Albumin 3.0 G/DL (3.4-5.0) L Globulin 3.2 g/dL Albumin/Globulin Ratio 0.9 (1.0-2.7) L Microbiology Date/Time Source Procedure Growth Status 02/19/18 03:15 Blood Blood Culture - Preliminary NO GROWTH AFTER 24 HOURS Resulted 02/19/18 03:00 Blood Blood Culture - Preliminary NO GROWTH AFTER 24 HOURS Resulted 02/19/18 13:49 Stool Stool Culture Pending Resulted 02/19/18 13:49 Stool Clostridium difficile Toxin Assay - Final Resulted Objective GENERAL: This is a very pleasant 27-year-old female, in no apparent respiratory distress. Alert and oriented. HEENT: Atraumatic and normocephalic. Anicteric. Pupils are equal, round, and reactive to light and accommodation. Extraocular movements intact. NECK: JVP less than 5 cm. No carotid bruits. Carotid upstrokes 2+ bilaterally. CARDIOVASCULAR: Normal S1 and S2. Regular rate and rhythm. No murmurs, gallops, or rubs. Tachycardic. PMI is at fourth intercostal space in the midclavicular. LUNGS: Clear to auscultation bilaterally. ABDOMEN: Soft, nontender, and nondistended. No hepatosplenomegaly. Positive bowel sounds. EXTREMITIES: No evidence of edema, clubbing or cyanosis. Charly Stack MD Feb 21, 2018 05:25
[2018-02-21 08:00] VITALS: BP 105/67
[2018-02-21] MEDS: D5NS 1,000 ML IV SCH (08:00)
[2018-02-21 08:50] LABS: BASOPHILS % (AUTO) 0.4 % (0.0-2.0); EOSINOPHILS % (AUTO) 2.5 % (0.0-3.0); HEMATOCRIT 41.1 % (37.0-47.0); HEMOGLOBIN 13.8 G/DL (12.0-16.0); LYMPHOCYTES % (AUTO) 29.2 % (20.0-45.0); MEAN CORPUSCULAR VOLUME 86 FL (80-99); MONOCYTES % (AUTO) 11.6 % (1.0-10.0); NEUTROPHILS % (AUTO) 56.3 % (45.0-75.0); PLATELET COUNT 151 K/UL (150-450); RED CELL DISTRIBUTION WIDTH 11.2 % (11.6-14.8); WHITE BLOOD COUNT 5.6 K/UL (4.8-10.8)
[2018-02-21] MEDS: Enoxaparin 40mg Inj SUBQ SCH (09:00)
[2018-02-21 09:30] LABS: ALANINE AMINOTRANSFERASE 24 U/L (12-78); ALBUMIN 3.3 G/DL (3.4-5.0); ALBUMIN/GLOBULIN RATIO 0.9 (1.0-2.7); ALKALINE PHOSPHATASE 41 U/L (46-116); ANION GAP 10 mmol/L (5-15); ASPARTATE AMINO TRANSFERASE 15 U/L (15-37); BILIRUBIN,TOTAL 0.5 MG/DL (0.2-1.0); BLOOD UREA NITROGEN 2 mg/dL (7-18); CALCIUM 8.2 MG/DL (8.5-10.1); CARBON DIOXIDE 25 MMOL/L (21-32); CHLORIDE 107 MMOL/L (98-107); CREATININE 0.7 MG/DL (0.55-1.30); SODIUM 142 MMOL/L (136-145)
[2018-02-21 09:35] LABS: PHOSPHORUS 2.1 MG/DL (2.5-4.9)
[2018-02-21 12:00] VITALS: BP 117/74
--- NOTE | 2018-02-21 14:21 | GI Progress Note ---
Assessment/Plan Problems: (1) Dehydration ICD Codes: E86.0 - Dehydration SNOMED: 00228496 (2) Diarrhea ICD Codes: R19.7 - Diarrhea, unspecified SNOMED: 45863483 (3) Fever ICD Codes: R50.9 - Fever, unspecified SNOMED: 836319870 (4) Colitis ICD Codes: K52.9 - Noninfective gastroenteritis and colitis, unspecified SNOMED: 52528223 (5) Gastroenteritis ICD Codes: K52.9 - Noninfective gastroenteritis and colitis, unspecified SNOMED: 40759975 Status: stable Status Narrative Discussed with Dr. Ceja. Assessment/Plan cdiff negative stool studies pending, f/u as outpatient okay for DC per GI standpoint symptomatic treatment zofran prn fu stool studies CLD, advance as tolerated IV/PO hydration + electrolyte correction fu labs The patient was seen and examined at bedside and all new and available data was reviewed in the patients chart. I agree with the above findings, impression and plan. (Patient seen earlier today. Signature stamp does not reflect patient encounter time.). - Hever Ceja MD Subjective Subjective Able to tolerate regular diet Diarrhea has improved wants To be discharged Objective Last 24 Hour Vital Signs Date Time Temp Pulse Resp B/P (MAP) Pulse Ox O2 Delivery O2 Flow Rate FiO2 02/21/18 09:00 Room Air 02/21/18 08:00 65 02/21/18 08:00 98.1 77 20 105/67 (80) 98 02/21/18 04:00 97.5 87 20 90/59 (69) 99 02/21/18 04:00 61 02/21/18 00:00 65 02/21/18 00:00 98.2 72 19 97/60 (72) 98 02/20/18 21:00 Room Air 02/20/18 20:00 68 02/20/18 20:00 98.1 88 19 100/66 (77) 92 02/20/18 16:00 73 02/20/18 15:42 97.3 75 18 119/75 (90) 99 Intake and Output 02/20/18 02/21/18 19:00 07:00 Intake Total 1300 ml Balance 1300 ml Intake Oral 500 ml IV Total 800 ml # Voids 5 2 # Bowel Movements 4 3 Laboratory Tests Test 02/21/18 08:10 White Blood Count 5.6 K/UL (4.8-10.8) Red Blood Count 4.80 M/UL (4.20-5.40) Hemoglobin 13.8 G/DL (12.0-16.0) Hematocrit 41.1 % (37.0-47.0) Mean Corpuscular Volume 86 FL (80-99) Mean Corpuscular Hemoglobin 28.8 PG (27.0-31.0) Mean Corpuscular Hemoglobin Concent 33.7 G/DL (32.0-36.0) Red Cell Distribution Width 11.2 % (11.6-14.8) L Platelet Count 151 K/UL (150-450) Mean Platelet Volume 7.7 FL (6.5-10.1) Neutrophils (%) (Auto) 56.3 % (45.0-75.0) Lymphocytes (%) (Auto) 29.2 % (20.0-45.0) Monocytes (%) (Auto) 11.6 % (1.0-10.0) H Eosinophils (%) (Auto) 2.5 % (0.0-3.0) Basophils (%) (Auto) 0.4 % (0.0-2.0) Sodium Level 142 MMOL/L (136-145) Potassium Level 3.0 MMOL/L (3.5-5.1) L Chloride Level 107 MMOL/L (98-107) Carbon Dioxide Level 25 MMOL/L (21-32) Anion Gap 10 mmol/L (5-15) Blood Urea Nitrogen 2 mg/dL (7-18) L Creatinine 0.7 MG/DL (0.55-1.30) Estimat Glomerular Filtration Rate > 60 mL/min (>60) Glucose Level 105 MG/DL (74-106) Calcium Level 8.2 MG/DL (8.5-10.1) L Phosphorus Level 2.1 MG/DL (2.5-4.9) L Magnesium Level 2.1 MG/DL (1.8-2.4) Total Bilirubin 0.5 MG/DL (0.2-1.0) Aspartate Amino Transf (AST/SGOT) 15 U/L (15-37) Alanine Aminotransferase (ALT/SGPT) 24 U/L (12-78) Alkaline Phosphatase 41 U/L (46-116) L Total Protein 7.1 G/DL (6.4-8.2) Albumin 3.3 G/DL (3.4-5.0) L Globulin 3.8 g/dL Albumin/Globulin Ratio 0.9 (1.0-2.7) L Height (Feet): 5 Height (Inches): 2.00 Weight (Pounds): 120 General Appearance: WD/WN, no apparent distress, alert Cardiovascular: normal rate Respiratory/Chest: normal breath sounds, no respiratory distress Abdominal Exam: normal bowel sounds, non tender, soft Extremities: normal range of motion, non-tender Reji Ma NP Feb 21, 2018 14:21
--- NOTE | 2018-02-21 15:19 | Pulmonology Progress Note ---
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 She's been unable to keep anything down for 1 day. She's also had watery stools that have change in smell. She's not passed any blood in not vomiting any blood. She also has myalgias and arthralgias. There is a slight amount of epigastric pain. She's not been able keep down any medication. She does not have a Zofran. Pain in body 7/10, abdomen 4/10. Some improvement with moving her bowels. Low K She denies any dysuria. LNMP normal. She feels dizzy when she stands up. Slight headache. 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 Period: 2 days ago Past Medical History: No Stated History Review of Systems All Other Systems: negative except mentioned in HPI Physical Exam Vital Signs Noted General Appearance: well appearing, no apparent distress, GCS 15 Head: normocephalic Eyes: bilateral eye normal inspection, bilateral eye PERRL ENT: moist mucus membranes Neck: supple Respiratory: lungs clear, normal breath sounds Cardiovascular #1: tachycardia Cardiovascular #2: 2+ radial (R) Gastrointestinal: normal inspection, normal bowel sounds, non tender, soft, non -distended, no guarding, no rebound Genitourinary: no CVA tenderness Musculoskeletal: back normal, normal range of motion Neurologic: alert, oriented x3, grossly normal Psychiatric: mood/affect normal Skin: normal inspection, warm/dry Impression Possible Infectious Diarrhea with fever. She is tachycardic and symptomatic. Plan: IV hydration, bolus PRN, Zofran and Toradol Supplement K Labs and urinalysis. Tolerating oral fluids Antibiotics: Cipro and Flagyl IV PPX O2 PRN Laboratory Tests Test 02/18/18 20:45 02/18/18 21:00 Urine Color Yellow Urine Appearance Clear Urine pH 5 (4.5-8.0) Urine Specific [place] 1.020 (1.005-1.035) Urine Protein 2+ (NEGATIVE) H Urine Glucose (UA) Negative (NEGATIVE) Urine Ketones 4+ (NEGATIVE) H Urine Blood 2+ (NEGATIVE) H Urine Nitrite Negative (NEGATIVE) Urine Bilirubin Negative (NEGATIVE) Urine Urobilinogen Normal MG/DL (0.0-1.0) Urine Leukocyte Esterase 1+ (NEGATIVE) H Urine RBC 5-10 /HPF (0 - 2) H Urine WBC 2-4 /HPF (0 - 2) Urine Squamous Epithelial Cells Few /LPF (NONE/OCC) Urine Amorphous Sediment Few /LPF (NONE) H Urine Bacteria Few /HPF (NONE) Urine HCG, Qualitative Negative (NEGATIVE) White Blood Count 8.4 K/UL (4.8-10.8) Red Blood Count 5.43 M/UL (4.20-5.40) H Hemoglobin 15.7 G/DL (12.0-16.0) Hematocrit 46.9 % (37.0-47.0) Mean Corpuscular Volume 86 FL (80-99) Mean Corpuscular Hemoglobin 28.9 PG (27.0-31.0) Mean Corpuscular Hemoglobin Concent 33.5 G/DL (32.0-36.0) Red Cell Distribution Width 11.3 % (11.6-14.8) L Platelet Count 164 K/UL (150-450) Mean Platelet Volume 8.4 FL (6.5-10.1) Neutrophils (%) (Auto) % (45.0-75.0) Lymphocytes (%) (Auto) % (20.0-45.0) Monocytes (%) (Auto) % (1.0-10.0) Eosinophils (%) (Auto) % (0.0-3.0) Basophils (%) (Auto) % (0.0-2.0) Differential Total Cells Counted 100 Neutrophils % (Manual) 88 % (45-75) H Lymphocytes % (Manual) 5 % (20-45) L Monocytes % (Manual) 4 % (1-10) Eosinophils % (Manual) 0 % (0-3) Basophils % (Manual) 0 % (0-2) Band Neutrophils 3 % (0-8) Platelet Estimate Adequate Platelet Morphology Normal Red Blood Cell Morphology Normal Sodium Level 139 MMOL/L (136-145) Potassium Level 3.6 MMOL/L (3.5-5.1) Chloride Level 104 MMOL/L (98-107) Carbon Dioxide Level 22 MMOL/L (21-32) Anion Gap 13 mmol/L (5-15) Blood Urea Nitrogen 15 mg/dL (7-18) Creatinine 0.8 MG/DL (0.55-1.30) Estimate Glomerular Filtration Rate > 60 mL/min (>60) Glucose Level 110 MG/DL (74-106) H Calcium Level 9.0 MG/DL (8.5-10.1) Total Bilirubin 1.1 MG/DL (0.2-1.0) H Direct Bilirubin 0.2 MG/DL (0.0-0.3) Aspartate Amino Transferase (AST) 17 U/L (15-37) Alanine Aminotransferase (ALT) 30 U/L (12-78) Alkaline Phosphatase 49 U/L (46-116) Total Protein 8.1 G/DL (6.4-8.2) Albumin 4.0 G/DL (3.4-5.0) Globulin 4.1 g/dL Albumin/Globulin Ratio 1.0 (1.0-2.7) Lipase 118 U/L (73-393) Labs Test 02/18/18 20:45 02/18/18 21:00 Urine Color Yellow Urine Appearance Clear Urine pH 5 (4.5-8.0) Urine Specific [place] 1.020 (1.005-1.035) Urine Protein 2+ (NEGATIVE) Urine Glucose (UA) Negative (NEGATIVE) Urine Ketones 4+ (NEGATIVE) Urine Blood 2+ (NEGATIVE) Urine Nitrite Negative (NEGATIVE) Urine Bilirubin Negative (NEGATIVE) Urine Urobilinogen Normal MG/DL (0.0-1.0) Urine Leukocyte Esterase 1+ (NEGATIVE) Urine RBC 5-10 /HPF (0 - 2) Urine WBC 2-4 /HPF (0 - 2) Urine Squamous Epithelial Cells Few /LPF (NONE/OCC) Urine Amorphous Sediment Few /LPF (NONE) Urine Bacteria Few /HPF (NONE) Urine HCG, Qualitative Negative (NEGATIVE) White Blood Count 8.4 K/UL (4.8-10.8) Red Blood Count 5.43 M/UL (4.20-5.40) Hemoglobin 15.7 G/DL (12.0-16.0) Hematocrit 46.9 % (37.0-47.0) Mean Corpuscular Volume 86 FL (80-99) Mean Corpuscular Hemoglobin 28.9 PG (27.0-31.0) Mean Corpuscular Hemoglobin Concent 33.5 G/DL (32.0-36.0) Red Cell Distribution Width 11.3 % (11.6-14.8) Platelet Count 164 K/UL (150-450) Mean Platelet Volume 8.4 FL (6.5-10.1) Neutrophils (%) (Auto) % (45.0-75.0) Lymphocytes (%) (Auto) % (20.0-45.0) Monocytes (%) (Auto) % (1.0-10.0) Eosinophils (%) (Auto) % (0.0-3.0) Basophils (%) (Auto) % (0.0-2.0) Differential Total Cells Counted 100 Neutrophils % (Manual) 88 % (45-75) Lymphocytes % (Manual) 5 % (20-45) Monocytes % (Manual) 4 % (1-10) Eosinophils % (Manual) 0 % (0-3) Basophils % (Manual) 0 % (0-2) Band Neutrophils 3 % (0-8) Platelet Estimate Adequate Platelet Morphology Normal Red Blood Cell Morphology Normal Sodium Level 139 MMOL/L (136-145) Potassium Level 3.6 MMOL/L (3.5-5.1) Chloride Level 104 MMOL/L (98-107) Carbon Dioxide Level 22 MMOL/L (21-32) Anion Gap 13 mmol/L (5-15) Blood Urea Nitrogen 15 mg/dL (7-18) Creatinine 0.8 MG/DL (0.55-1.30) Estimat Glomerular Filtration Rate > 60 mL/min (>60) Glucose Level 110 MG/DL (74-106) Calcium Level 9.0 MG/DL (8.5-10.1) Total Bilirubin 1.1 MG/DL (0.2-1.0) Direct Bilirubin 0.2 MG/DL (0.0-0.3) Aspartate Amino Transf (AST/SGOT) 17 U/L (15-37) Alanine Aminotransferase (ALT/SGPT) 30 U/L (12-78) Alkaline Phosphatase 49 U/L (46-116) Total Protein 8.1 G/DL (6.4-8.2) Albumin 4.0 G/DL (3.4-5.0) Globulin 4.1 g/dL Albumin/Globulin Ratio 1.0 (1.0-2.7) Lipase 118 U/L (73-393) Subjective ROS Limited/Unobtainable: No Allergies: Uncoded Allergies: MINOCYLES MX (Allergy, Unknown, 02/18/18) Objective Last 24 Hour Vital Signs Date Time Temp Pulse Resp B/P (MAP) Pulse Ox O2 Delivery O2 Flow Rate FiO2 02/21/18 09:00 Room Air 02/21/18 08:00 65 02/21/18 08:00 98.1 77 20 105/67 (80) 98 02/21/18 04:00 97.5 87 20 90/59 (69) 99 02/21/18 04:00 61 02/21/18 00:00 65 02/21/18 00:00 98.2 72 19 97/60 (72) 98 02/20/18 21:00 Room Air 02/20/18 20:00 68 02/20/18 20:00 98.1 88 19 100/66 (77) 92 02/20/18 16:00 73 02/20/18 15:42 97.3 75 18 119/75 (90) 99 Intake and Output 02/20/18 02/21/18 19:00 07:00 Intake Total 1300 ml Balance 1300 ml Intake Oral 500 ml IV Total 800 ml # Voids 5 2 # Bowel Movements 4 3 Microbiology Date/Time Source Procedure Growth Status 02/19/18 03:15 Blood Blood Culture - Preliminary NO GROWTH AFTER 48 HOURS Resulted 02/19/18 03:00 Blood Blood Culture - Preliminary NO GROWTH AFTER 48 HOURS Resulted 02/19/18 13:49 Stool Stool Culture Pending Resulted 02/19/18 13:49 Stool Clostridium difficile Toxin Assay - Final Resulted Laboratory Tests 02/21/18 08:10: White Blood Count 5.6, Red Blood Count 4.80, Hemoglobin 13.8, Hematocrit 41.1, Mean Corpuscular Volume 86, Mean Corpuscular Hemoglobin 28.8, Mean Corpuscular Hemoglobin Concent 33.7, Red Cell Distribution Width 11.2L, Platelet Count 151, Mean Platelet Volume 7.7, Neutrophils (%) (Auto) 56.3, Lymphocytes (%) (Auto) 29.2, Monocytes (%) (Auto) 11.6H, Eosinophils (%) (Auto) 2.5, Basophils (%) ( Auto) 0.4, Sodium Level 142, Potassium Level 3.0L, Chloride Level 107, Carbon Dioxide Level 25, Anion Gap 10, Blood Urea Nitrogen 2L, Creatinine 0.7, Estimat Glomerular Filtration Rate > 60, Glucose Level 105, Calcium Level 8.2L, Phosphorus Level 2.1L, Magnesium Level 2.1, Total Bilirubin 0.5, Aspartate Amino Transf (AST/SGOT) 15, Alanine Aminotransferase (ALT/SGPT) 24, Alkaline Phosphatase 41L, Total Protein 7.1, Albumin 3.3L, Globulin 3.8, Albumin/ Globulin Ratio 0.9L Current Medications Medications (Trade) Dose Ordered Sig/Анна Route PRN Reason Start Time Stop Time Status Last Admin Dose Admin Acetaminophen (Tylenol) 650 mg Q4H PRN ORAL Mild Pain/Temp > 100.5 02/19/18 06:00 03/21/18 05:59 02/19/18 22:58 Ciprofloxacin 200 ml @ 200 mls/hr Q12HR@0300,1500 IV 02/19/18 15:00 02/26/18 14:59 02/21/18 03:09 Dextrose/Sodium Chloride 1,000 ml @ 125 mls/hr Q8H IV 02/19/18 15:05 03/21/18 15:04 02/21/18 08:00 Enoxaparin Sodium (Lovenox) 40 mg DAILY SUBQ 02/19/18 09:00 03/21/18 08:59 Metoclopramide HCl (Reglan) 10 mg Q8H PRN IVP Nausea & Vomiting 02/20/18 15:45 03/22/18 15:44 02/20/18 19:44 Metronidazole 100 ml @ 100 mls/hr Q8H IVPB 02/19/18 16:00 02/26/18 15:59 02/21/18 07:59 Morphine Sulfate (Morphine Sulfate) 3 mg Q4H PRN IVP Severe Pain (Pain Scale 7-10) 02/19/18 14:15 02/26/18 05:59 02/20/18 07:55 Ondansetron HCl (Zofran) 4 mg Q6H PRN IVP Nausea & Vomiting 02/19/18 06:00 03/21/18 05:59 02/20/18 10:30 Sodium Chloride 550 ml @ 999 mls/hr Q6H PRN IV SBP <105 02/19/18 06:45 03/21/18 06:44 Kye Jones MD Feb 21, 2018 15:19
--- NOTE | 2018-02-21 15:28 | Infectious Diseases Prog Note ---
Assessment/Plan Problems: (1) Gastroenteritis Assessment & Plan: bacterial VS viral , with high fever and sever diarrhea suggestive of bacterial , continue ciprofloxacin empirically and flagyl , pending Giardia antigen and stool culture with OVA/Parasites , keep in contact isolation for now pending stool culture . C diff toxin is negative (2) Diarrhea Assessment & Plan: suspect infectious in eiteology with high fever due to recent contact with child who had diarrhea illness , continue hydration and antibiotics empirically, avoid anti diarrhea meds (3) Fever Assessment & Plan: due to the above , resolved continue antibiotics and tylenol , pending cultures and stool study (4) Dehydration Assessment & Plan: due to the above, continue ivf for hydration and encourage oral intake Subjective Constitutional: Reports: anorexia HEENT: Reports: no symptoms Respiratory: Reports: no symptoms Breasts: Reports: no symptoms Cardiovascular: Reports: no symptoms Gastrointestinal/Abdominal: Reports: diarrhea, bloating Genitourinary: Reports: no symptoms Neurologic: Reports: no symptoms Psychiatric: Reports: no symptoms Skin: Reports: no symptoms Endocrine: Reports: no symptoms Hematologic: Reports: no symptoms Musculoskeletal: Reports: no symptoms Allergies: Uncoded Allergies: MINOCYLES MX (Allergy, Unknown, 02/18/18) Objective Vital Signs Last 24 Hour Vital Signs Date Time Temp Pulse Resp B/P (MAP) Pulse Ox O2 Delivery O2 Flow Rate FiO2 02/21/18 09:00 Room Air 02/21/18 08:00 65 02/21/18 08:00 98.1 77 20 105/67 (80) 98 02/21/18 04:00 97.5 87 20 90/59 (69) 99 02/21/18 04:00 61 02/21/18 00:00 65 02/21/18 00:00 98.2 72 19 97/60 (72) 98 02/20/18 21:00 Room Air 02/20/18 20:00 68 02/20/18 20:00 98.1 88 19 100/66 (77) 92 02/20/18 16:00 73 02/20/18 15:42 97.3 75 18 119/75 (90) 99 Height (Feet): 5 Height (Inches): 2.00 Weight (Pounds): 120 General Appearance: WD/WN, no acute distress HEENT: normocephalic, atraumatic, anicteric, mucous membranes moist, PERRL, EOMI, pharynx normal, supple, no JVD Respiratory/Chest: chest wall non-tender, lungs clear, normal breath sounds, no respiratory distress, no accessory muscle use Cardiovascular: normal peripheral pulses, normal rate, regular rhythm, no gallop/murmur, no JVD Abdomen: normal bowel sounds, soft, non tender, no organomegaly, non distended , no mass, no scars Genitourinary: normal external genitalia Extremities: no cyanosis, no clubbing Skin: no rash, no lesions, no ulcers Neurologic/Psychiatric: alert, oriented x 3, responsive Lymphatic: no neck adenopathy, no groin adenopathy Musculoskeletal: normal muscle bulk, no effusion Microbiology Date/Time Source Procedure Growth Status 02/19/18 03:15 Blood Blood Culture - Preliminary NO GROWTH AFTER 48 HOURS Resulted 02/19/18 03:00 Blood Blood Culture - Preliminary NO GROWTH AFTER 48 HOURS Resulted 02/19/18 13:49 Stool Stool Culture Pending Resulted 02/19/18 13:49 Stool Clostridium difficile Toxin Assay - Final Resulted Laboratory Tests Test 02/21/18 08:10 White Blood Count 5.6 K/UL (4.8-10.8) Red Blood Count 4.80 M/UL (4.20-5.40) Hemoglobin 13.8 G/DL (12.0-16.0) Hematocrit 41.1 % (37.0-47.0) Mean Corpuscular Volume 86 FL (80-99) Mean Corpuscular Hemoglobin 28.8 PG (27.0-31.0) Mean Corpuscular Hemoglobin Concent 33.7 G/DL (32.0-36.0) Red Cell Distribution Width 11.2 % (11.6-14.8) L Platelet Count 151 K/UL (150-450) Mean Platelet Volume 7.7 FL (6.5-10.1) Neutrophils (%) (Auto) 56.3 % (45.0-75.0) Lymphocytes (%) (Auto) 29.2 % (20.0-45.0) Monocytes (%) (Auto) 11.6 % (1.0-10.0) H Eosinophils (%) (Auto) 2.5 % (0.0-3.0) Basophils (%) (Auto) 0.4 % (0.0-2.0) Sodium Level 142 MMOL/L (136-145) Potassium Level 3.0 MMOL/L (3.5-5.1) L Chloride Level 107 MMOL/L (98-107) Carbon Dioxide Level 25 MMOL/L (21-32) Anion Gap 10 mmol/L (5-15) Blood Urea Nitrogen 2 mg/dL (7-18) L Creatinine 0.7 MG/DL (0.55-1.30) Estimat Glomerular Filtration Rate > 60 mL/min (>60) Glucose Level 105 MG/DL (74-106) Calcium Level 8.2 MG/DL (8.5-10.1) L Phosphorus Level 2.1 MG/DL (2.5-4.9) L Magnesium Level 2.1 MG/DL (1.8-2.4) Total Bilirubin 0.5 MG/DL (0.2-1.0) Aspartate Amino Transf (AST/SGOT) 15 U/L (15-37) Alanine Aminotransferase (ALT/SGPT) 24 U/L (12-78) Alkaline Phosphatase 41 U/L (46-116) L Total Protein 7.1 G/DL (6.4-8.2) Albumin 3.3 G/DL (3.4-5.0) L Globulin 3.8 g/dL Albumin/Globulin Ratio 0.9 (1.0-2.7) L Current Medications Medications (Trade) Dose Ordered Sig/Анна Route PRN Reason Start Time Stop Time Status Last Admin Dose Admin Acetaminophen (Tylenol) 650 mg Q4H PRN ORAL Mild Pain/Temp > 100.5 02/19/18 06:00 03/21/18 05:59 02/19/18 22:58 Ciprofloxacin 200 ml @ 200 mls/hr Q12HR@0300,1500 IV 02/19/18 15:00 02/26/18 14:59 02/21/18 03:09 Dextrose/Sodium Chloride 1,000 ml @ 125 mls/hr Q8H IV 02/19/18 15:05 03/21/18 15:04 02/21/18 08:00 Enoxaparin Sodium (Lovenox) 40 mg DAILY SUBQ 02/19/18 09:00 03/21/18 08:59 Metoclopramide HCl (Reglan) 10 mg Q8H PRN IVP Nausea & Vomiting 02/20/18 15:45 03/22/18 15:44 02/20/18 19:44 Metronidazole 100 ml @ 100 mls/hr Q8H IVPB 02/19/18 16:00 02/26/18 15:59 02/21/18 07:59 Morphine Sulfate (Morphine Sulfate) 3 mg Q4H PRN IVP Severe Pain (Pain Scale 7-10) 02/19/18 14:15 02/26/18 05:59 02/20/18 07:55 Ondansetron HCl (Zofran) 4 mg Q6H PRN IVP Nausea & Vomiting 02/19/18 06:00 03/21/18 05:59 02/20/18 10:30 Sodium Chloride 550 ml @ 999 mls/hr Q6H PRN IV SBP <105 02/19/18 06:45 03/21/18 06:44 Claudia Garnica M.D. Feb 21, 2018 15:28
--- NOTE | 2018-02-21 18:30 | Consultation ---
DATE OF CONSULTATION: 02/21/2018 HISTORY OF PRESENT ILLNESS: This is a very pleasant 27-year-old female who was admitted to the hospital with gastroenteritis. 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 She was seen and worked up in the hospital and admitted for symptom management and care. The patient's past history is completely unremarkable. No history of alcohol or tobacco usage. She denies any headaches, hematemesis, melena, hematochezia, weight loss. She admits to having diarrhea. HOME MEDICATIONS: Tylenol and Zofran. PHYSICAL EXAMINATION: unremarkable. LUNGS: Clear breath sounds bilaterally. ABDOMEN: Soft. NEUROLOGIC: Nonfocal. LABS: Lab testing at this time is unremarkable with normal CBC and BMP. Potassium is 3. IMPRESSION: Acute gastroenteritis, suspect viral. DISCUSSION: Presently, the patient is able to tolerate a liquid diet. Her diarrhea frequency had decreased and nausea has decreased. We will discharge home. We will replace potassium. Outpatient followup with primary care doctor. Provide Reglan prescription. given till 02/24/2018. Bony Aly M.D. DR: KEITH JOB#: [id number] CC:
--- NOTE | 2018-02-22 14:49 | Discharge Summary ---
Discharge Summary Discharge Summary _ DATE OF ADMISSION: 02/19/2018 DATE OF DISCHARGE: 02/21/2018 DISCHARGED BY: Dr. 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 Patient was tachycardic and symptomatic. Patient was treated in emergency department with IV hydration, Zofran and Toradol as well as a small dose of morphine. Workup revealed no leukocytosis, stable hemoglobin hematocrit , neutrophils 88% . Chemistry was unremarkable . Stable LFT and lipase. Total bilirubin 1.5 Glucose 110. Urine test negative. urinalysis +2 blood, 5-10 RBC. Patient admitted due to high fever and severe diarrhea with diagnosis of gastroenteritis. CONSULTANTS: quality analyst/technical writer Dr. Stack pulmonary Dr. Aly ID specialist Dr. Garnica GI specialist Dr. Shaikh [facility] COURSE: Patient admitted and started on the IV fluids and empiric antibiotics. ID and GI consults were requested. Patient initially was kept n.p.o. ID specialist closely followed. Patient had high fever and severe diarrhea , suggestive more of a bacterial cause of gastroenteritis. Ciprofloxacin and Flagyl empirically started and continued. Stool culture was negative. Stool for ova and parasite was negative. Stool for C.difficile was negative. Blood cultures were negative. Patient was initially was kept in contact isolation. due to high suspicion of infectious etiology , given high fever , severe diarrhea and recent contact with a child who had diarrhea. Relief Manager followed for hypotension. According to quality analyst/technical writer, hypotension was likely due to volume depletion. Patient was initially dehydrated and was on the IV fluids. Patient started slowly on liquid diet and was advanced as tolerated. Supportive care provided . Antiemetic provided as needed. Oral intake was closely monitored and encouraged . Patient was able to tolerate diet. Fever resolved, no leukocytosis. Giardia antigen pending. Renal parameters and electrolytes were closely monitored. Electrolytes corrected as needed (potassium, magnesium and phosphorus), and nephrotoxins were avoided. Initially slightly elevated glucose 110 , repeated blood sugar stable. Bilirubin 1.1 minimally elevated initially, likely due to vomiting ; repeated x2 and was in range. Urinalysis with microhematuria. Patient was on her menstrual period. Patient clinically stabilized. No fever for 24 hours. Patient was stable for discharge home FINAL DIAGNOSES: Acute gastroenteritis Diarrhea-resolved Dehydration-resolved Fever- resolved Hypotension likely due to volume depletion- resolved DISCHARGE MEDICATIONS: See Medication Reconciliation list. DISCHARGE INSTRUCTIONS: Patient was discharged home Follow up with primary care provider in one week. I have been assigned to dictate discharge summary for this account. I was not involved in the patient's management. Lily Jimenez NP Feb 22, 2018 14:49
== END 2018-02-21 15:25 | disposition home or self-care (01) | DRG 392 ==
LOC: EMR 20:59 → 2E 02-19 03:13 → EDBEDREQ 02-19 03:54 → 2E 02-19 05:32
DX: A09 Infectious gastroenteritis and colitis, unspecified (principal); E86.0 Dehydration; I95.9 Hypotension, unspecified; E86.9 Volume depletion, unspecified; Z88.8 Allergy status to other drugs, medicaments and biological substances
CPT/HCPCS: 36415; 80053; 81003; 81025; 82248; 83605; 83690; 83735; 84100; 85007; 85025; 87040; 87045; 87324; 87329; 96361; 96365; 96375; 96376; 99285; J2405; J2765; J8499